=== PATIENT | female | born 1940 | race Caucasian/White ===

== ENCOUNTER → 2018-01-09 12:00 | Outpatient (CLI) | payer MEDICARE, OTHER, SELFPAY ==
--- NOTE | 2018-01-09 | DI.MG.S_ITS ---
BILATERAL DIGITAL SCREENING MAMMOGRAM 3D/2D WITH CAD: 01/09/2018 CLINICAL: Routine screening. Comparison is made to exams dated: 12/19/2016 mammogram, 12/11/2015 mammogram, and 12/08/2014 mammogram - [facility]. The tissue of both breasts is predominantly fatty. Current study was also evaluated with a Computer Aided Detection (CAD) system. No significant masses, calcifications, or other findings are seen in either breast. There has been no significant interval change. IMPRESSION: NEGATIVE There is no mammographic evidence of malignancy. A 1 year screening mammogram is recommended. This exam was interpreted at Station ID: [id number]. NOTE: For mammograms, a report in lay terms will be sent to the patient. Approximately 15% of breast malignancies will not be visualized mammographically. In the management of a palpable breast mass, a negative mammogram must not discourage biopsy of a clinically suspicious lesion. Electronically Signed By: Lona johnson/shelley:01/10/2018 09:30:00 letter sent: Normal Exam ACR BI-RADS Category 1: Negative [id number]
== END ==
PROVIDERS: PCP Physician Assistant; Visit Provider Physician Assistant
DX: Z12.31 Encounter for screening mammogram for malignant neoplasm of breast (principal)
CPT/HCPCS: 77063; 77067

== ENCOUNTER 2019-03-31 08:26 | Day surgery (SDC) | payer MEDICARE, OTHER, SELFPAY ==
--- NOTE | 2019-03-31 | PATH_ITS ---
[facility] Accession Number: [id number] . 01 Material submitted: . PART A: colon - TRANSVERSE COLON POLYP PART B: colon - MASS AT 25CM BIOPSY . 02 Diagnosis: A. Transverse Colon, Polyp, Biopsy: Tubular adenoma. . B. Colon, Mass at 25 cm, Biopsy: Invasive adenocarcinoma, moderately differentiated. Please see comment. MRV 04/01/2019 1630 Local . 02 Comment: B. As part of routine rn quality, Dr. Lyle also reviewed part B of this case and agrees with the diagnosis. Mismatch repair IHC will be performed and the results reported as an addendum. . Dr. Lambert gave preliminary results to Oralia in Dr. Youssef's office on 04/01/2019. . 02 Electronically signed: . Suzie Lambert MD, Pathologist NPI- [id number] . 01 Gross description: . Part A: TRANSVERSE COLON POLYP: Received in formalin is 1 fragment(s) of simeon, soft tissue measuring 0.5 x 0.4 x 0.4 cm submitted entirely in 1 cassette(s) Part B: MASS AT 25CM BIOPSY: Received in formalin are 3 fragment(s) of simeon, soft tissue measuring 0.1 x 0.1 x 0.1 cm to 0.3 x 0.2 x 0.2 cm submitted entirely in 1 cassette(s) /[facility] [place] 03/31/2019 2236 Local . 02 Pathologist provided ICD-10: D12.2, C18.9 . 02 CPT . 499518, 448000 Performed at: [facility] [address] [place] [address] [address], [place], [place] [id number] MD Rui Chi MD Phone: [phone] Performed at: 02 [facility] [address] [place] [id number] MD Suzie Lambert MD Phone: [phone]
[2019-03-31 08:45] VITALS: BMI 29.2
[2019-03-31] MEDS: SODIUM CHLORIDE 0.9% 1,000 ML 84 ML IV (08:51)
[2019-03-31 08:56] VITALS: BP 134/73; PULSE 86; RESP 16; TEMP 36.5; O2SAT 99
--- NOTE | 2019-03-31 10:58 | PM.HP.1 ---
History of Present Illness History of Present Illness Chief complaint: [id number] COLONOSCOPY/EGD W/POSS BX Patient History Family & Social History Social History: household members spouse Tobacco & Substance use: Smoking Status Never smoker alcohol intake current alcohol intake frequency holiday/special occasion Substance Use Type does not use Meds Home Medications and Allergies Home Medications Medication Instructions Recorded Confirmed Type cholecalciferol (vitamin D3) 2,000 unit PO DAILY 03/31/19 03/31/19 History [Vitamin D3] levothyroxine 100 mcg PO DAILY 03/31/19 03/31/19 History Allergies Allergy/AdvReac Type Severity Reaction Status Date / Time No Known Drug Allergies Allergy Verified 03/31/19 08:50 Review of Systems Review of Systems ROS: Yes All systems reviewed with the patient and are negative except as otherwise documented Exam Vital Signs (past 8 hours): - 03/31/19 08:56 Temperature 97.7 F Pulse Rate 86 Respiratory Rate 16 Blood Pressure 134/73 Pulse Oximetry 99 Oxygen Delivery Method Room Air Narrative Exam Narrative: Awake and alert and oriented x3, no acute distress, lungs clear to auscultation bilaterally, heart regular rate and rhythm, no lower extremity edema Assessment & Plan Assessment & Plan narrative: GERD, positive cologuard, EGD and colonoscopy
--- NOTE | 2019-03-31 11:07 | PM.OP.ENDO ---
Operative Date/Time/Diagnoses Date of procedure: 03/31/19 Procedure & Clinicians Study performed: EGD Indications: Moderate conscious sedation was administered by the endoscopy nurse and supervised by the endoscopist. The following parameters were monitored: Oxygen saturation, heart rate, blood pressure, and response to care. Sedation totals: 4 mg midazolam, 100 mcg fentanyl Procedure Notes Procedure in detail: Prior to the procedure, history and physical was performed, and patient medications and allergies were reviewed. Preprocedure nursing history and assessment was reviewed. Patient identification and proposed procedure were verified by the physician and nurse in the procedure room. The physical status of the patient was reassessed after the procedure. After informed consent was obtained including risks, benefits, and alternatives, the scope was passed under direct vision. Throughout the procedure, the patient's blood pressure, pulse, and oxygen saturations were monitored continuously. The upper endoscope was introduced through the mouth and advanced to the 2nd portion of the duodenum. Retroflexion was performed in the stomach. The patient tolerated the procedure well. LA grade C esophagitis was noted in the distal esophagus. There was bleeding on contact by the scope with the mucosa. The gastroesophageal junction was located at 33 cm from the incisors. A 3 cm hiatal hernia was noted. Crural pinch was located at 36 cm. The remainder of the stomach was normal appearing The entire examined duodenum was normal appearing Impression: LA grade C hemorrhagic esophagitis 3 cm hiatal hernia Normal appearing examined duodenum Complications: other (EBL minimal. No complications) Post-procedure Plan for aftercare: Take omeprazole 20 mg twice daily Follow anti-reflux diet and lifestyle Resume home medications Proceed with colonoscopy today Make an appointment in GI clinic in 4-6 weeks Repeat EGD in 8 weeks to confirm healing of esophagitis
[2019-03-31] MEDS: MIDAZOLAM 5 MG/5 ML VIAL IV ×2 (11:15→11:21)
[2019-03-31] MEDS: fentaNYL 250 MCG/5 ML INJ IV (11:18)
--- NOTE | 2019-03-31 11:38 | PM.OP.ENDO ---
Operative Date/Time/Diagnoses Date of procedure: 03/31/19 Procedure & Clinicians Study performed: Colonoscopy with snare polypectomy, biopsy, and injection for tattoo Moderate conscious sedation was administered by the endoscopy nurse and supervised by the endoscopist. The following parameters were monitored: Oxygen saturation, heart rate, blood pressure, and response to care. Sedation total: 3 mg midazolam, plus meds given during EGD Indications: Positive cologuard. Last colonoscopy was done in 2008. Procedure Notes Procedure in detail: Prior to the procedure, history and physical was performed, and patient medications and allergies were reviewed. Preprocedure nursing history and assessment was reviewed. Patient identification and proposed procedure were verified by the physician and nurse in the procedure room. The physical status of the patient was reassessed after the procedure. After informed consent was obtained including risks, benefits, and alternatives, the scope was passed under direct vision. Throughout the procedure, the patient's blood pressure, pulse, and oxygen saturations were monitored continuously. The colonoscope was introduced through the anus and advanced to the cecum as identified by the appendiceal orifice and ileocecal valve. The patient tolerated the procedure well. Bowel prep was deemed adequate to detect polyps greater than 5 mm. Prep was fair prior to lavage. Perianal and digital rectal examinations were unremarkable. Retroflexion in the rectum was unrevealing. A few scattered medium mouth diverticula were noted in the sigmoid colon At 25 cm from the anal verge, a 2 cm mass was noted. This was biopsied with a Jumbo forceps. The area was tattooed with spot ink just proximal to and just distal to the mass. A 5 mm sessile polyp was removed from the transverse colon with a cold snare and was retrieved. Impression: 2 cm mass noted 25 cm from the anal verge. This was biopsied and the area was tattooed. 5 mm transverse colon polyp removed Sigmoid colon diverticulosis Sedation minutes: 39 Complications: other (EBL minimal. No complications) Post-procedure Plan for aftercare: Follow-up pathology results Referred to a general surgeon for resection of the mass seen in the left colon Repeat colonoscopy 1 year after the resection of the left colon mass Resume home medications Resume previous diet Discharge home with escort
[2019-03-31 11:42] VITALS: BP 109/44; PULSE 75; RESP 14; TEMP 36.1; O2SAT 98
[2019-03-31 11:47] VITALS: BP 128/93; PULSE 79; RESP 15; O2SAT 96
[2019-03-31 12:15] VITALS: BP 123/56; PULSE 69; RESP 16; TEMP 36.6; O2SAT 98
--- NOTE | 2019-03-31 14:56 | SUR.PHASEII ---
Late entry: discharge instructions extensively discussed with pt and her . Dr. Youssef also to bedside to go over discharge instruction as well. Belly soft, no nausea. Pt left when ready and left in stable condition.
== END 2019-03-31 12:30 | disposition home or self-care (01) ==
PROVIDERS: PCP Physician Assistant; Referring Provider Physician Assistant; Visit Provider Internal Medicine
PROC: 0DJ08ZZ Inspection of Upper Intestinal Tract, Via Natural or Artificial Opening Endoscopic (ICD-10-PCS; CPT 43235; principal; 2019-03-31 10:00)
PROC: 0DJD8ZZ Inspection of Lower Intestinal Tract, Via Natural or Artificial Opening Endoscopic (ICD-10-PCS; CPT 45378; 2019-03-31 10:00)
DX: C18.9 Malignant neoplasm of colon, unspecified (principal); K20.8 Other esophagitis; K22.8 Other specified diseases of esophagus; K44.9 Diaphragmatic hernia without obstruction or gangrene; D12.3 Benign neoplasm of transverse colon
CPT/HCPCS: 45381; 45385; 45380; 43235; J2250; J3010

== ENCOUNTER → 2019-04-05 16:32 | Outpatient (CLI) | payer MEDICARE, OTHER, SELFPAY ==
[2019-04-05 17:08] LABS: Add Manual Diff / Slide Review NO; Basophils Absolute Auto 100 /uL (0-100); Basophils Percent Auto 1.5 % (0-2); Eosinophils Absolute Auto 100 /uL (0-450); Eosinophils Percent Auto 1.7 % (2-4); Hematocrit 43.7 % (36-46); Hemoglobin 14.7 g/dL (12.0-16.0); Lymphocytes Absolute Auto 2400 /uL (1100-4500); Lymphocytes Percent Auto 27.9 % (25-40); Mean Corpuscular HGB Conc 33.6 % (30-36); Mean Corpuscular Hemoglobin 30.7 PG (26-34); Mean Corpuscular Volume 91.5 fL (80-100); Monocytes Absolute Auto 700 /uL (0-900); Monocytes Percent Auto 8.2 % (3-14); Neutrophils Absolute Auto 5200 /uL (1500-7000); Neutrophils Percent Auto 60.7 % (50-75); Platelet Count 309 X10^3/uL (150-400); Red Blood Cell Count 4.77 X10^6/uL (4.0-5.2); Red Cell Distribution Width 13.2 % (11.6-14.8); White Blood Cell Count 8.6 X10^3/uL (4.5-11.0)
[2019-04-05 17:39] LABS: Alanine Aminotransferase 11 IU/L (<35); Albumin 4.5 g/dL (3.5-5.0); Albumin Globulin Ratio 1.3 (1.0-2.8); Alkaline Phosphatase 88 U/L (38-126); Aspartate Aminotransferase 21 IU/L (14-36); Bilirubin Total 0.4 mg/dL (0.2-1.3); Blood Urea Nitrogen 16 mg/dL (7-17); Calcium 8.8 mg/dL (8.4-10.2); Carbon Dioxide 28 mmol/L (22-32); Chloride 105 mmol/L (98-107); Cholesterol 194 mg/dL (140-199); Estimated Glomerular Filt Rate 53.8 mL/min (>60); Globulin 3.4 g/dL (1.7-4.1); Glucose 93 mg/dL (80-110); HDL Cholesterol 74 mg/dL (40-60); HEMOLYSIS < 15 (0-50); LDL Cholesterol Calculated 96 mg/dL (<100); Potassium 4.3 mmol/L (3.4-5.1); Sodium 142 mmol/L (137-145); Total Protein 7.9 g/dL (6.3-8.2); Triglycerides 118 mg/dL (35-150)
[2019-04-05 18:10] LABS: Vitamin D 25 Hydroxy (D3) 28.5 ng/mL (30.0-100.0)
[2019-04-05 18:43] LABS: Free T4, Direct Thyroxine 1.06 ng/dL (0.78-2.19)
== END ==
PROVIDERS: PCP Physician Assistant; Referring Provider Physician Assistant; Visit Provider Physician Assistant
DX: C18.9 Malignant neoplasm of colon, unspecified (principal); E03.9 Hypothyroidism, unspecified; I10 Essential (primary) hypertension; E55.9 Vitamin D deficiency, unspecified; E78.5 Hyperlipidemia, unspecified
CPT/HCPCS: 36415; 80053; 80061; 82306; 84439; 84443; 85025

== ENCOUNTER → 2019-04-07 09:43 | Outpatient (CLI) | payer MEDICARE, OTHER, SELFPAY ==
--- NOTE | 2019-04-07 | DI.CT.S_ITS ---
PROCEDURE: CT CHEST ABD PEL W CON INDICATIONS: Malignant neoplasm of colon, unspecified TECHNIQUE: After the administration of oral and intravenous contrast, 5 mm thick sections acquired from the lung apices to the symphysis. 5 mm coronal and sagittal reformats were performed, with additional 7 mm coronal MIP reformats through the lungs. For radiation dose reduction, the following was used: automated exposure control, adjustment of mA and/or kV according to patient size. COMPARISON: None. FINDINGS: Image quality: Excellent. CHEST: Lungs and pleura: A 3mm posterior right upper lobe nodule seen on image 88, series 3. A 5mm peripheral right lower nodule seen on image 213, series 3. No acute airspace opacities. No pleural effusions or pneumothorax. Central and peripheral airways appear patent and normal in caliber. Mediastinum: Heart size is normal. No pericardial effusion. No mediastinal or hilar adenopathy by size criteria. Thoracic aorta and central pulmonary arteries are normal in size. Esophagus is normal in caliber. No hiatal hernia. Chest wall: No axillary or supraclavicular adenopathy by size criteria. Thyroid gland is unremarkable. ABDOMEN: Solid organs: Liver is normal in size and enhancement. Gallbladder is surgically absent . Biliary system is non dilated. Pancreas enhances normally. Spleen is normal in size and enhancement. No adrenal nodules. Kidneys demonstrate normal size and enhancement, without hydronephrosis. There is a 2.4 cm right renal cyst. Peritoneum and bowel: No evidence for bowel obstruction. Oral contrast is visualized to the level of the terminal ileum. There is moderate colonic diverticulosis from the junction of the distal descending colon/sigmoid colon through the rectum without evidence of acute inflammatory changes. There is a possible segment of asymmetric bowel wall thickening versus mass noted in the antimesenteric side of the proximal sigmoid colon (axial image 104, series 2, Sagittal image 32, series 5) measuring approximately 2.5 cm x 1.5 cm x 1.7 cm. There is mild circumferential wall thickening of the sigmoid colon which is favored to represent incomplete distention. No free fluid or air. Nodes and vessels: No retroperitoneal or mesenteric adenopathy by size criteria. Aorta and inferior vena cava are normal in size. Miscellaneous: No ventral hernias. PELVIS: Genitourinary: Bladder wall thickness is normal. Miscellaneous: No inguinal hernias or adenopathy. Bones: No suspicious bony lesions. No vertebral body compression fractures. IMPRESSION: 1. Possible segment of asymmetric bowel wall thickening versus mass noted in the antimesenteric side of the proximal sigmoid colon measuring approximately 2.5 cm x 1.5 cm x 1.7 cm. This may correlate with abnormal colonoscopy finding. Recommend correlation with location of the abnormality on colonoscopy with location of this finding. Otherwise, no other suspicious findings visualized in the chest, abdomen, or pelvis. 2. Moderate colonic diverticulosis of the distal colon without acute diverticulitis. 3. Two sub-6mm right sided pulmonary nodules. Recommend follow up chest CT in 12 months to document stability. 4. Status post cholecystectomy. Dictated by: Evgeny Ovalle M.D. on 04/07/2019 at 11:51 Approved by: Evgeny Ovalle M.D. on 04/07/2019 at 12:42
== END ==
PROVIDERS: PCP Physician Assistant; Referring Provider Physician Assistant; Visit Provider Physician Assistant
DX: C18.9 Malignant neoplasm of colon, unspecified (principal); R91.8 Other nonspecific abnormal finding of lung field; K57.30 Diverticulosis of large intestine without perforation or abscess without bleeding; Z90.49 Acquired absence of other specified parts of digestive tract
CPT/HCPCS: 71260; 74177; Q9967

== ENCOUNTER 2019-05-05 07:46 | Inpatient (IN) | payer MEDICARE, OTHER, SELFPAY ==
[2019-04-27 09:00] VITALS: BMI 30.5
[2019-05-05] VITALS (19 sets, daily range): BP systolic 111–188; BP diastolic 49–96; PULSE 67–96; RESP 10–20; TEMP 36.1–36.5; O2SAT 88–97; BMI 31.1
--- NOTE | 2019-05-05 | PATH_ITS ---
[facility] Accession Number: [id number] . 01 Material submitted: . sigmoid colon - SIGMOID COLON . 02 Diagnosis: Sigmoid Colon, Resection: Invasive adenocarcinoma, please see cancer summary below. . SURGICAL PATHOLOGY CANCER CASE SUMMARY, COLON AND RECTUM: PROCEDURE: Sigmoidectomy. TUMOR SITE: Sigmoid colon. TUMOR SIZE: Greatest dimension: 2.0 CM. MACROSCOPIC TUMOR PERFORATION: Not identified. . HISTOLOGIC TYPE: Adenocarcinoma. HISTOLOGIC GRADE: G2: moderately differentiated. TUMOR EXTENSION: Tumor invades submucosa. MARGINS: All margins are uninvolved by invasive carcinoma, high-grade dysplasia/intramucosal carcinoma, and low-grade dysplasia. MARGINS EXAMINED: Proximal, distal, mucosal. . TREATMENT EFFECT: No known presurgical therapy. LYMPHOVASCULAR INVASION: Present, small vessel lymphovascular invasion. PERINUERAL INVASION: Not identified. TYPE OF POLYP IN WHICH INVASIVE CARCINOMA AROSE: Tubular adenoma. TUMOR DEPOSITS: Present. 1 tumor deposit present in pericolorectal adipose tissue. . REGIONAL LYMPH NODES: Number of Lymph Nodes Involved: 4. Number of Lymph Nodes Examined: 13. . PATHOLOGIC STAGE CLASSIFICATION: Primary tumor: pT1. Regional Lymph Nodes: pN2a. . ADDITIONAL PATHOLOGIC FINDINGS: Diverticulosis. ANCILLARY STUDIES: Performed on the prior biopsy ([id number]). No loss of expression of mismatch repair proteins (MLH1, MSH2, MSH6, and PMS2). [facility] 05/11/2019 1602 Local . 02 Comment: The greatest dimension as measured on a slide A6 is 1.7 CM. However, the mass involves 5 sequential tissue blocks, at 0.4 mm estimated thickness for a cumulative dimension of 2.0 CM. . 02 Electronically signed: . Suzie Lambert MD, Pathologist NPI- [id number] . 01 Gross description: . Received in formalin, labeled sigmoid colon, is an unoriented, partially opened segment of colon (length-10.9 cm, resection margin #1 diameter-2.3 cm, resection margin #2 diameter-2.0 cm) with attached mesentery (up to 6.5 cm). The resection margins are received stapled. The mucosa is simeon with a focally tattooed area (7.0 x 3.5 cm) located 1.5 cm from resection margin #1 and 2.4 cm from resection margin #2. Within this area is a simeon firm mass (2.3 x 2.2 x 1.7 cm). The mass is 0.4 cm from the serosa, 3.8 cm from resection margin #1, 6.5 cm from resection margin #2, and 6.5 cm from the radial resection margin. The remaining mucosa has distorted folds. No other nodules, masses or lesions are identified. The resection margins are inked blue. Section code: (A1) resection margin #1, longitudinal customer account representative; (A2) resection margin #2, customer account representative longitudinal sections; (A3) mass with serosa; (A4) radial resection margin, customer account representative; (A5-A8) mass, serially sectioned, entirely submitted; (A9) tattooed area, customer account representative serial section. . A preliminary lymph node search was performed and multiple possible lymph nodes (0.1 cm-0.5 cm) were identified. These are submitted in cassette A10. The adipose tissue was removed and processed overnight in grossing aid resulting in the identification of multiple possible lymph nodes (0.1 cm-0.2 cm). These are submitted in cassette A11. ([id number]) /[facility] 05/09/2019 [facility]0 Local . 02 Microscopic: . An immunhistochemical stain for D2-40 was performed on block A6 in order to evaluate for lymphovascular invasion and is positive around cells of interest consistent with lymphovascular invasion. The control stain showed appropriate reactivity. . * This test was developed and its performance characteristics determined by [employer]. It has not been cleared or approved by the U.S. Food and Drug Administration. The FDA has determined that such clearance or approval is not necessary. This test is used for clinical purposes. It should not be regarded as investigational or for research. . 02 Pathologist provided ICD-10: C18.9 . 02 CPT . 569495, [id number] Performed at: 01 [facility] [address] [place] [address], [place], [place] [id number] MD Rui Chi MD Phone: [phone] Performed at: 02 [facility] [id number] [place], [place] [id number] MD Suzie Lambert MD Phone: [phone]
[2019-05-05] MEDS: PIPERACILLIN-TAZO 3.375 GM/50 ML FROZ.PIGGY IV (10:27)
--- NOTE | 2019-05-05 10:27 | PM.PREOP ---
Pre-operative Note Interval Note History & Physical reviewed/Exam performed by Physician: Yes Changes to H&P: Yes H&P completed within 30 days and has changed as indicated here:: Patient has been back to see her primary care doctor about her elevated TSH. Her levothyroxine dose was increased to 125 micro g per day. She has a plan for follow-up and future check of her TSH when she has recovered from surgery. Otherwise no changes since her prior H&P, which is labeled as General surgery office visit.
--- NOTE | 2019-05-05 11:11 | P.OP_ITS ---
Operative Date/Time/Diagnoses Date of procedure: 05/05/19 Time of procedure: 11:11 Pre-op diagnosis: Complicated diverticulitis. Post-op diagnosis: same Procedure & Clinicians Procedure: Cystoscopy and placement bilateral localizing ureteral stents. Same procedure as scheduled: Yes Indications: Complicated diverticulitis Surgeon: Lexy Nassar Click Yes if Unassisted: Yes Anesthesia Type: General Operative Notes Findings: 1. 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 2. Normal bladder urothelium throughout. 3. Normal position and configuration of bilateral ureteral orifices. Closure Type: not applicable Specimen(s): none sent Applied: catheter (1. 16 Hebrew Cates catheter 2. Bilateral illuminating ureteral stents (black marker on the left).) Estimated Blood Loss (mL): 0 Blood products transfused: none Tourniquet time (min): 0 Procedure in detail: The patient was positioned supine and was administered general anesthesia. She was then repositioned in semi lithotomy in the lower abdomen genitalia and groin were prepped and draped in sterile fashion. The 22 Hebrew panendoscope was then passed and lower urinary tract with the findings as described above. A 0.35 guidewire was then advanced through the scope and into the left ureteral orifice without incident. Over this a black labeled illuminating ureteral stent sheath was advanced over the wire. The wire was then removed. The same steps in maneuvers were performed on the right side positioning a non labeled illuminating ureteral stent sheath. The bladder was left partially filled and the panendoscope was then removed. A 16 Hebrew Cates catheter was then inserted and lower urinary tract the balloon was filled with 10 cc of saline, and the bladder was drained. The illuminating stent sheaths were then secured to the Cates catheter using op site dressings. The fiberoptic wires were then advanced through the lumen of the illuminating ureteral sheaths bilaterally. They were then secured at this location with yet another op site dressing. Dr. Elvin acuña then proceeded with her portion of the operative plan. Complications: none Post-operative Condition: stable Disposition: PACU
[2019-05-05] MEDS: BUPIVACAINE 0.25% W/ EPI 30 ML VIAL 60 ML INJ (15:23)
[2019-05-05] MEDS: BUPIVACAINE LIPOSOME 266 MG/20 ML VIAL INJ (15:26)
[2019-05-05] MEDS: ACETAMINOPHEN IV 1,000 MG/100 ML VIAL 400 MG IV (15:30)
--- NOTE | 2019-05-05 16:07 | PM.OP.1 ---
Operative Date/Time/Diagnoses Date of procedure: 05/05/19 Time of procedure: 16:07 Pre-op diagnosis: Sigmoid colon cancer Post-op diagnosis: same Procedure & Clinicians Procedure: 1) Laparoscopic splenic flexure mobilization 2) Laparoscopic sigmoid colectomy with extracorporeal hand sewn anastomosis 3) Lapaoroscopic lysis of adhesions Same procedure as scheduled: Yes Indications: Sigmoid colon cancer Surgeon: Sandra Ricci Electronics Engineering Technician: Callum Saldivar Anesthesia Type: General Operative Notes Findings: 2cm colon cancer in sigmoid colon Closure Type: primary Specimen(s): other (sigmoid colon) Estimated Blood Loss (mL): 10 Procedure in detail: The patient was brought into the operating room and placed supine on the OR table. Sequential compression devices were placed on both legs and turned on. Appropriate perioperative antibiotics were given prior to the start of surgery. General anesthesia was induced the patient was intubated. Dr. Nassar came in to place ureteral stents. Please see his dictation for that portion of the procedure. Once the ureteral stents were placed the patient was positioned in low lithotomy, modified Aung Lee position. The abdomen and perineum were prepped and draped in sterile fashion. Surgical time-out was conducted. Local anesthetic was injected under the skin just superior to the umbilicus and a 5 mm vertical incision was made at this site. The umbilical stalk was grasped with a Deondre and elevated. A Veress needle was passed through the fascia into proper position. The position was tested with a saline drop test which was appropriate for intra-abdominal Veress needle placement. The abdomen was then insufflated in the usual fashion. Once insufflated to 15 mm Hg the Veress needle was removed and a 5 mm optical trocar was placed under direct vision using a 5 mm 30 degree scope. Once the camera was inside the abdomen I took a look around. There was no injury from port placement. Additional 5mm ports were placed in a similar fashion in the right mid abdomen, and left mid abdomen, and a 12mm port in the right lower quadrant. Moderate dense adhesions were seen in the left and right upper abdomen. The adhesions were gradually taken down with LigaSure. I then turned my attention toward the sigmoid colon, and evaluated the tattooed area of the colon. It was readily visible in the mid sigmoid. We then began dissecting the white line of Toldt laterally from the promontory going superiorly towards the splenic flexure. There were some dense adhesions of the omentum to the transverse and descending colon, which took a prolonged and tedious dissection to remove. Once we finally had mobilization of the splenic flexure we then turned our attention to the distal sigmoid and pelvis. Dissection was continued laterally, with easy avoidance of the ureters because of the ureteral stents which were flashing pink. Once we completed our lateral dissection, our attention was then turned medially. We elevated the colon to the abdominal wall and were able to stretch out the GABBI. I then opened the mesentery at the takeoff of the GABBI, and dissected it circumferentially. I then put two 10 mm clips at the base of the GABBI and 1 distally, and then divided between with LigaSure. We then carried our dissection proximal and distal in order to free the sigmoid colon and its associated mesentery, vessels, and associated lymph nodes. Once the specimen was freed with over 10 cm of distance proximal and distal to the tattoo, I then made a 7 cm periumbilical midline incision, and placed a GelPort hand port. The incision was made in the skin with a 15 blade, after local anesthetic was given. The incision was then carried down to the fascia with electrocautery, and the fascia was opened at the midline. Once incision was made, the GelPort hand port was placed. We then elevated the specimen through the hand port, and were able to bring the entire sigmoid colon through the port. we then divided the sigmoid colon 10 cm proximal and 10 cm distal to the tattoo, giving more than ample margin. The colon was divided with 75 mm blue load TIFFANY stapler. A hand sewn anastomosis was then performed using a double row sutures, within anterior row of running 3 0 PDS, and exterior row of 3 0 silk pop offs in a Lemberted fashion. Once the anastomosis was complete a palpated the anastomosis and found to be patent, and pushed gas and liquid bowel contents back and forth across the anastomosis with no bubbling or leaking from the suture line. At this point the anastomosed bowel was placed back into the abdomen. We insufflated the abdomen and took a final look, to ensure that the bowel was not twisted, and there was no small bowel trapped underneath the colon. The bowel looked well perfused, and under no tension. The specimen was opened on the back table in the entire tumor was found within the specimen, with the greater than 10 cm margin on either side. Specimens sent to pathology. I then closed the right lower quadrant 12 mm port site with a Saurabh Frey transabdominal suture passer using an 0 Vicryl. Injected local anesthetic using 0.25% Marcaine with epi plus Exparel into the site. We then desufflated the abdomen removed the GelPort. I then injected the midline fascial incision with local anesthetic using 0.25% Marcaine with epi as well as Exparel. The fascia was then closed in a running fashion with 0 Prolene suture. The skin was then closed with skin gregoria, and a 4 Monocryl suture was used to close the skin around the umbilicus. The laparoscopic port sites were covered with Band-Aids, and the midline incision was cover with 4x4s and Tegaderm. The ureteral stents were then removed, and the Cates was left in place. Needle sponge and instrument counts were correct x2 at the end of the procedure. The patient tolerated the procedure well. Patient was awakened from anesthesia and extubated. She was transferred to the post-anesthesia care unit in stable condition. Complications: none Post-operative Condition: stable Disposition: PACU
[2019-05-05 18:01] LABS: Add Manual Diff / Slide Review NO; Basophils Absolute Auto 100 /uL (0-100); Basophils Percent Auto 0.6 % (0-2); Eosinophils Absolute Auto 0 /uL (0-450); Hematocrit 40.6 % (36-46); Hemoglobin 13.4 g/dL (12.0-16.0); Lymphocytes Absolute Auto 600 /uL (1100-4500); Lymphocytes Percent Auto 3.2 % (25-40); Mean Corpuscular HGB Conc 32.9 % (30-36); Mean Corpuscular Hemoglobin 29.9 PG (26-34); Monocytes Absolute Auto 600 /uL (0-900); Monocytes Percent Auto 3.1 % (3-14); Neutrophils Absolute Auto 17900 /uL (1500-7000); Neutrophils Percent Auto 93.1 % (50-75); Platelet Count 248 X10^3/uL (150-400); Red Blood Cell Count 4.46 X10^6/uL (4.0-5.2); Red Cell Distribution Width 12.8 % (11.6-14.8); White Blood Cell Count 19.3 X10^3/uL (4.5-11.0)
--- NOTE | 2019-05-05 18:04 | SUR.PHASEI ---
Labs drawn from left antecubital IV site and sent to lab. Patient tolerated well.
[2019-05-05] MEDS: LACTATED RINGERS 1,000 ML 42 ML IV ×3 (18:20→18:24)
[2019-05-05 18:24] LABS: BUN Creatinine Ratio 17.1 (6-22); Blood Urea Nitrogen 14 mg/dL (7-17); Calcium 8.8 mg/dL (8.4-10.2); Carbon Dioxide 22 mmol/L (22-32); Chloride 108 mmol/L (98-107); Estimated Glomerular Filt Rate > 60.0 mL/min (>60); Glucose 166 mg/dL (80-110); Magnesium 1.6 mg/dL (1.6-2.3); Potassium 3.9 mmol/L (3.4-5.1); Sodium 138 mmol/L (137-145)
[2019-05-05 18:25] LABS: HEMOLYSIS 62 (0-50)
[2019-05-05] MEDS: MAGNESIUM SULFATE 2 GM/50 ML PIGGYBACK IV (19:45)
[2019-05-05] MEDS: ACETAMINOPHEN 325 MG TABLET 650 MG PO (19:55)
[2019-05-05] MEDS: PANTOPRAZOLE 20 MG TABLET PO (20:32)
--- NOTE | 2019-05-05 22:20 | PC.ADMIT ---
[email or web address] [facility] Admission Note: The patient,Rebecca Diaz,79 y/o, was given written information regarding hospital policies, unit procedures and contact persons. Pt arrived from PACU at approx 1900. Awake, oriented x4. Denies pain. Lap sites x4 c/d/i. Denies nausea. Oriented to room and call system. Supportive family at bedside. Patient's smoking status: Never smoker. Vital Signs - 8 hr 05/05/19 17:30 05/05/19 17:34 05/05/19 17:44 Temperature 97.4 F L Pulse Rate 96 H 84 82 Respiratory Rate 15 11 L 13 Blood Pressure 188/88 H 175/77 H 160/84 H Pulse Oximetry 90 L 90 L 94 05/05/19 17:49 05/05/19 17:54 05/05/19 18:04 Temperature Pulse Rate 81 81 68 Respiratory Rate 13 11 L 10 L Blood Pressure 162/69 H 168/75 H 158/63 H Pulse Oximetry 94 94 95 05/05/19 18:10 05/05/19 18:14 05/05/19 18:24 Temperature 97.2 F L Pulse Rate 71 80 69 Respiratory Rate 14 14 11 L Blood Pressure 159/63 H 170/75 H 142/49 H Pulse Oximetry 95 95 96 05/05/19 18:40 05/05/19 19:00 05/05/19 19:30 Temperature 97.1 F L Pulse Rate 67 71 73 Respiratory Rate 14 17 Blood Pressure 127/49 L 158/96 H 153/79 H Pulse Oximetry 93 92 93 05/05/19 20:00 05/05/19 20:15 05/05/19 21:00 Temperature 97.3 F L 96.9 F L Pulse Rate 67 69 68 Respiratory Rate 18 16 17 Blood Pressure 111/81 152/74 H Pulse Oximetry 94 95 94
[2019-05-06] MEDS: ACETAMINOPHEN 325 MG TABLET 650 MG PO ×4 (00:20→18:04)
[2019-05-06 00:37] VITALS: BP 153/67; PULSE 71; RESP 18; TEMP 36.6; O2SAT 96
--- NOTE | 2019-05-06 02:40 | PC.NURSE ---
Patient seen and assessed at 0036. Is alert and oriented. Breath sounds diminished but CTA. At shift change patient on RA with sat of 88% so placed on oxygen at 1L/min with sat improving to 96%; is on continuous oximetry monitoring. HRR. BP elevated at 153/97 consistent with earlier readings. Denies nausea. BT hypoactive; denies flatus. Indwelling catheter is patent; urine is clear with pink tinge. Is able to move herself in bed. Up earlier walking in [place] with walker and SBA. Lap dressings to abdomen are intact with small spots of drainage on dressing in LUQ and RLQ. Denies pain. Wearing bilateral calf SCD's. Has abdominal binde but not wanting to wear at this time. Fall risk score is moderate and bed alarm is activated.
[2019-05-06 05:30] VITALS: BP 145/76; PULSE 89; RESP 16; TEMP 36.6; O2SAT 96
[2019-05-06] MEDS: LEVOTHYROXINE 125 MCG TABLET PO (05:56)
[2019-05-06 06:52] LABS: Add Manual Diff / Slide Review NO; Basophils Absolute Auto 0 /uL (0-100); Basophils Percent Auto 0.2 % (0-2); Eosinophils Absolute Auto 0 /uL (0-450); Hematocrit 39.9 % (36-46); Hemoglobin 13.4 g/dL (12.0-16.0); Lymphocytes Absolute Auto 700 /uL (1100-4500); Lymphocytes Percent Auto 5.1 % (25-40); Mean Corpuscular HGB Conc 33.5 % (30-36); Mean Corpuscular Hemoglobin 30.3 PG (26-34); Mean Corpuscular Volume 90.3 fL (80-100); Monocytes Absolute Auto 1100 /uL (0-900); Neutrophils Absolute Auto 12300 /uL (1500-7000); Neutrophils Percent Auto 86.7 % (50-75); Platelet Count 254 X10^3/uL (150-400); Red Blood Cell Count 4.42 X10^6/uL (4.0-5.2); Red Cell Distribution Width 12.8 % (11.6-14.8); White Blood Cell Count 14.2 X10^3/uL (4.5-11.0)
[2019-05-06 06:59] LABS: BUN Creatinine Ratio 16.7 (6-22); Blood Urea Nitrogen 14 mg/dL (7-17); Calcium 10.3 mg/dL (8.4-10.2); Carbon Dioxide 26 mmol/L (22-32); Chloride 104 mmol/L (98-107); Estimated Glomerular Filt Rate > 60.0 mL/min (>60); Glucose 127 mg/dL (80-110); HEMOLYSIS < 15 (0-50); Magnesium 2.2 mg/dL (1.6-2.3); Potassium 4.6 mmol/L (3.4-5.1); Sodium 139 mmol/L (137-145)
[2019-05-06 08:00] VITALS: BP 146/61; PULSE 81; RESP 16; TEMP 37.3; O2SAT 97
[2019-05-06 09:00] VITALS: PULSE 86; O2SAT 98
--- NOTE | 2019-05-06 09:42 | PC.NURSE ---
Addendum entered by Pamela Olivier R.N. 05/06/19 15:43: 1200 vitals not done, pt ambulating, Evening RN aware. Addendum entered by Pamela Olivier R.N. 05/06/19 14:08: At 1405, pt reported passing flatus X1 while sitting on toilet voiding. Addendum entered by Pamela Olivier R.N. 05/06/19 13:40: Late Entry- At 0905, update rec'd from Dr. Ricci. Order for full liquid diet, remove urinary catheter, discontinue blood glucose finger stick monitoring and S/S insulin, Okay for pt to take her own medication of Omeprazole as pantoprazole is not effective for pt. Urinary catheter removed at 0920 without difficulty. Pt voided X1 for approx 100mls of straw colored urine with pink ting and sediment. Pt voided again at 1235 for approx 700 mls of straw colored urine with sediment and pink ting. Pt tolerated full liquid diet for lunch, continues to report mild abd bloating and belching, no flatus yet, denies nausea. Ambulating around unit for 3rd time this shift using walker indep with steady gait. Addendum entered by Pamela Olivier R.N. 05/06/19 12:41: Dr. Ricci called at 1240 for pt status update, At this time, pt has no flatus, Mild abd bloating, belching intermittent, non distressing. Abd discomfort 1/10. Ambulated X2 for several laps each time around unit indep using walker, tolerated well. Original Note: Day Shift- Pt's own medications of Omeprazole and Levothyroxine sent to pharmacy to ID
[2019-05-06] MEDS: HEPARIN 5,000 UNIT/ML VIAL 5000 UNIT SUBCUT (10:29)
[2019-05-06] MEDS: SODIUM CHLORIDE 0.9% FLUSH 10 ML IV (10:33)
[2019-05-06 15:51] VITALS: BP 142/59; PULSE 91; RESP 20; TEMP 36.4; O2SAT 94
--- NOTE | 2019-05-06 16:02 | CM.DANOTE ---
Discharge Planning/Care Management DCP: assessment: Case received, EMR reviewed . Discussed in Team Rounds. Pt is a 79 year old female who admitted yesterday for a scheduled 2 part procedure: first with Dr. Ramos and then with Dr. Ricci. DX: sigmoid colon cancer: procedure: Lap Assisted colectomy with JESSE and spenic flexure mobilization. Bilateral localizing uretal stents. Pt was up and walking in halls with walker and SBA of nusing staff post op. P: check in with pt and follow for d/c issues and options as these are identifidied. Pre-op assessment note: see that 04/26 template info below identifies d/c plan as home after a 3-4 day hospital stay and clinic followup. CM Discharge Assessment Start: 05/06/19 09:26 Freq: Status: Active Protocol: Document 05/06/19 16:01 ITV (Rec: 05/06/19 16:02 ITV [id number]) Discharge Planning Assessment Advance Directives? Yes: POLST Advance Directives on File No History Provided By Medical Record Prior Living Arrangements House Household Members spouse,children Review Status In Process Pre-Anesthesia Assessment Start: 04/27/19 09:00 Freq: Status: Complete Protocol: Document 04/27/19 09:00 CAB (Rec: 04/27/19 09:35 CAB [id number]) Pre-Anesthesia Assessment Patient Information Reviewed Via Phone Assessment Assessment Completed With Patient Primary Care Provider Francisca Lin Seen Specialist in Last 12 Months Yes Specialist Seen General surgeon,Oncologist, Urologist Primary Language Peruvian Drop Board Man Required No Height 162.56 cm Weight 80.739 kg Body Mass Index (BMI) 30.5 Hearing Ability Normal Visual Assist Glasses Dentition Type Dental Implants Barriers to Learning None Other Aids No Hx Anesthesia Reactions No Hx Family Anesthesia Reaction No Hx Malignant Hyperthermia No Hx Blood Transfusions No Hx Blood Transfusion Reaction No Anesthesia Review Requested No alcohol intake current alcohol intake frequency holidays/special occasions only Smoking Status Never smoker Substance Use Type does not use Pain Present Pain Reported History of Falling (Recent or History of No ) Patient is completely paralyzed or No completely immobile Mental Status Oriented to own ability Is patient on oxygen? No Does patient have GALEANO/SOB No Hx Sleep Apnea No CPAP/BIPAP use not prescribed Currently Taking a Beta James No Can You Climb a Flight of Stairs Without Yes SOB Hx Chest Pain No Hx SOB No Hx Syncope or Dizziness No Anti-Coagulant Therapy No Has a Lubricating Specialist No Cardiac Testing No Hx Pacemaker/ICD No Pacemaker Rep Required? No Cardiac Clearance Received Not Applicable Diet Type At Home Regular dysphagia No Gastrointestinal Symptoms Reflux Urinary Catheter Present No Hx Urinary Self Catheterization No Diabetes No Patient No Lactating No Hx Drug Resistant Organism No Presence of External or Internal Medical Yes: dental implants Devices Stevenson exposure No Have you had any close contact with No someone diagnosed with NOVEL CORONAVIRUS ? Have you traveled outside the [facility] in the last 30 days? Marital Status Lives With spouse,children Prior Living Arrangements House Number of Floors (Floors) Two Floors Support System Child/Children,Spouse Patient Discharge Plan Description Return Home Comment Pt advised 3-4 day length of stay per surgeon Feels Safe in Current Environment Yes Been Physically Hurt or Threatened By a No Person in Current Environment Do you have thoughts of harming yourself None or others? Are you currently considering suicide? No Do you have a plan to hurt yourself or No Plan others? Do You Have Any Spiritual Beliefs That No May Affect Your HC Choices? Do You Have Any Cultural Practices That No May Affect Your HC Choices? Who Can We Speak to About Patient's Care Family, friends Identifying Code for Release of Patient Declines to issue Information Health Care Proxy/Next of Kin Jorge Stevenson () Health Care Proxy Emergency Contact Name Jorge Stevenson () Emergency Contact Advance Directives? Yes: POLST Advance Directives on File No Requested Patient Bring Advanced Yes Directives DOS Power of Yarn Mercerizer Operator Helper Yes Power of Yarn Mercerizer Operator Helper Name Graham rahel Power of Yarn Mercerizer Operator Helper PAC Instructions Medications to take/avoid,No ETOH/petroleum product on skin DOS,NPO,Pre-op antibiotic,Pre -surgical wash,Sturdy shoes/ comfortable clothes,Do not bring valuables and remove jewelry
--- NOTE | 2019-05-06 16:43 | PM.DS.1 ---
History of Present Illness History of Present Illness Date Patient Seen: 05/06/19 Time Patient Seen: 16:43 Chief complaint: 73186 Lap-Assisted Colectomy & 27877 Cystoscopy Narrative: This is a 79-year-old woman who had colon cancer found on colonoscopy last month. She came in for sigmoid colectomy to remove that segment of her colon. She tolerated the procedure well, and on postop day 1 was passing gas and tolerating a full liquid diet. Her pain was well controlled with Tylenol only. Discharge Providers Provider Date of admission: 05/05/19 07:46 Discharge Date: 05/06/19 Primary care physician: Francisca Lin PA-C Consults: 05/05/19 19:06 Consult to Dietitian, Adult Routine Comment: Reason For Exam: PT WILL GO HOME ON LOW RESIDUAL Consult to Discharge Planning Routine Comment: Discharge provider: Sandra Ricci MD Summary Hospital Course Discharge Diagnosis: COlon cancer Hospital Course: Passing gas, tolerating full liquids, pain controlled on Tylenol on POD#1. Discharged home on POD#1. Status at Discharge Cognitive/behavioral status at discharge: oriented Functional status at discharge: independent ambulation Overall status at discharge: patient is progressing back to baseline Time Spent with Patient Time spent: Greater than 30 minutes Exam Vital Signs (past 8 hours): - 05/06/19 09:00 05/06/19 15:51 Temperature 97.6 F Pulse Rate 86 91 H Respiratory Rate 20 Blood Pressure 142/59 H Pulse Oximetry 98 94 Oxygen Delivery Method Room Air Oxygen Flow Rate 0 Narrative Exam Narrative: alert, oriented, comfortable non tachypneic; satting well and breathing comfortably on room air normal respirations NSR abdomen soft, appropriate TTP dressings c/d/i no LE edema Objective Labs Result Diagrams: 05/06/19 06:16 05/06/19 06:16 Labs: Laboratory Results - last 24 hr 05/05/19 05/05/19 05/06/19 17:50 17:50 06:16 WBC 19.3 H 14.2 H RBC 4.46 4.42 Hgb 13.4 13.4 Hct 40.6 39.9 MCV 91.0 90.3 MCH 29.9 30.3 MCHC 32.9 33.5 RDW 12.8 12.8 Plt Count 248 254 Neut % (Auto) 93.1 H 86.7 H Lymph % (Auto) 3.2 L 5.1 L [place] % (Auto) 3.1 8.0 Eos % (Auto) 0.0 L 0.0 L Baso % (Auto) 0.6 0.2 Neut # (Auto) 90427 H 02144 H Lymph # (Auto) 600 L 700 L [place] # (Auto) 600 1100 H Eos # (Auto) 0 0 Baso # (Auto) 100 0 Sodium 138 Potassium 3.9 Chloride 108 H Carbon Dioxide 22 BUN 14 Creatinine 0.82 Estimated GFR > 60.0 BUN/Creatinine Ratio 17.1 Glucose 166 H Calcium 8.8 Magnesium 1.6 05/06/19 06:16 WBC RBC Hgb Hct MCV MCH MCHC RDW Plt Count Neut % (Auto) Lymph % (Auto) [place] % (Auto) Eos % (Auto) Baso % (Auto) Neut # (Auto) Lymph # (Auto) [place] # (Auto) Eos # (Auto) Baso # (Auto) Sodium 139 Potassium 4.6 Chloride 104 Carbon Dioxide 26 BUN 14 Creatinine 0.84 Estimated GFR > 60.0 BUN/Creatinine Ratio 16.7 Glucose 127 H Calcium 10.3 H Magnesium 2.2 Discharge Plan Discharge Plan Patient Disposition: Home Discharge comment: You had a sigmoid colectomy for colon cancer. The pathology results will be available sometime next week. Because your pain is well controlled, you have had return of bowel function by passing gas and tolerating a full liquid diet, and because her vital signs are normal, and your labs are normal I am discharging home. You are still recovering from a big surgery, and should be vigilant in keeping a close eye on your symptoms. Things to watch out for are fever over 100.5, nausea, vomiting, bloating, obstipation (which means not passing gas or stool), or increasing or severe pain. You should expect to see some increasing your incisional pain around day 3 because that is when your local anesthetic will wear off. When you remove the dressings, if you see spreading redness, murky fluid draining out of the incision, or anything draining out that has a foul odor, please let me know this in the e-mail, and page the physician on-call to discuss these concerns. You may take Tylenol for your pain. You may take 500-1000 mg per dose. Do not take more than 3000 mg in 24 hours. You may take prescription medication which we will give you called oxycodone. Please keep in mind the oxycodone will cause constipation, and if you take it you should also take a stool softener such as docusate, which is also called Colace. I will send a prescription to your pharmacy for the docusate which you can also get [id number]. Tomorrow you may remove her Band-Aids and the outer dressing on your periumbilical incision. You may take a shower, and pat dry the incisions after you are done. You may then re-cover the incisions with simple dry dressings or Band-Aids. Please continue a full liquid diet until you feel comfortable taking more complex foods. I recommend that you do not advance yourself beyond a low residual diet, which means low in bulk and fiber. I recommend you avoid things like hard meats such as steak, and pork, and that you avoid uncooked vegetables or fruit peels. The nurse or dietitian can give you a printout of a low residual diet pamphlet before you leave. Please take your temperature twice a day, and e-mail me each morning before 10:00 a.m.. In the email I would like to no higher feeling, white your temperature has been, and whether not you have been passing gas or stool, and whether not you had nausea or vomiting. My e-mail address is [email or web address]. If you have any sudden or severe symptoms that require immediate attention, please call the [facility] office and follow the phone instructions to reach the physician on-call. This will be my partner, Dr. Mcguire. You may also come directly into the ER if you have severe or concerning symptoms and cannot reach anyone quickly enough by other means. I would much rather you do this than struggle at home. If there is any discrepancy between the notes in the above paragraphs, and the pre-printed/boiler plate notes given to you at discharge, please follow the notes written here. Please make a follow-up appointment to see me in the office on Friday. This is very important. Discharge orders & Medications Prescriptions: New oxycodone 5 mg tablet 5 mg PO Q4H PRN (Reason: Postoperative pain) Qty: 30 RF: 0 docusate sodium 100 mg capsule 100 mg PO BID Qty: 60 RF: 0 Continued nystatin 100,000 unit/gram powder 1 applictn TOP BID PRN (Reason: Yeast infection) RF: 0 magnesium citrate Solution 296 ml PO .per instructions Qty: 592 RF: 0 erythromycin 500 mg tablet 1,000 mg PO TID Qty: 6 RF: 0 neomycin 500 mg tablet 1 g PO TID Qty: 6 RF: 0 cholecalciferol (vitamin D3) [Vitamin D3] 2,000 unit Tablet 4,000 unit PO DAILY RF: 0 levothyroxine 125 mcg Tablet 125 mcg PO DAILY RF: 0 omeprazole 20 mg Capsule,Delayed Release(Dr/Ec) 20 mg PO BID RF: 0 Follow up/Referrals: Francisca Lin PA-C [Primary Care Provider] - Sandra Ricci MD [Physician] - (Friday 10 AM at [facility] [phone]) Diet/Activity/Treatments Diet: Diet as Tolerated Diet comment: Low residual diet, please give patient low residual diet handout Activity: Please stay active, but avoid heavy lifting more than 10 lb or anything that strains your abdominal muscles. Cold/Heat Therapy: Okay to use an ice pack on your incision for comfort and pain really Skin/Wound/Dressing Care Report to your healthcare provider any signs of infection, such as:: chills, fever, night sweats, increased pain, unusual drainage and unusual redness Visit Report/Discharge Packet Instructions: Low-Fiber/Low-Residue Diet, DI for Cystoscopy, DI for Colectomy, DI for Laparoscopy, DI for Prescription Opioid Use, [facility]: Wound Care Discharge Data Primary Care Provider: Francisca Lin Discharges patient from system. Discharge Date/Time: 05/06/19 18:30 Quality VTE Deep Vein Thrombosis/Pulmonary Embolism Present on Admission: No
--- NOTE | 2019-05-06 19:24 | PC.NURSE ---
Assumed care of pt at 1500. Pt ambulating halls during bedside hand-off. Lap sites x4 C/D/I. Denies pain. Reports passing flatus. MD in for rounding. D/C to home ordered. Pt verbalized understanding of all d/c orders. Medications stored in pharmacy returned to pt. IV removed. pt escorted out to private vehicle by family and EQUIPMENT DRIVER. Pt left in stable condition with all personal belongings.
== END 2019-05-06 18:30 | disposition home or self-care (01) | DRG 331 ==
PROVIDERS: Specialist; Admitting Provider Surgery; PCP Physician Assistant; Referring Provider Physician Assistant; Visit Provider Surgery
PROC: 0DTE0ZZ Resection of Large Intestine, Open Approach (ICD-10-PCS; principal; 2019-05-05 09:45)
PROC: 0T788DZ Dilation of Bilateral Ureters with Intraluminal Device, Via Natural or Artificial Opening Endoscopic (ICD-10-PCS; 2019-05-05 09:45)
DX: C18.7 Malignant neoplasm of sigmoid colon (principal); N30.80 Other cystitis without hematuria; K66.0 Peritoneal adhesions (postprocedural) (postinfection); E03.9 Hypothyroidism, unspecified; K21.9 Gastro-esophageal reflux disease without esophagitis
CPT/HCPCS: 36415; 44204; 44213; 80048; 82962; 83735; 85025; 94762; C9290; J0131; J0330; J1100; J1644; J2250; J2310; J2405; J2543; J2704; J3010

== ENCOUNTER → 2019-05-25 18:18 | Outpatient (ROUT) | payer MEDICARE, OTHER, SELFPAY ==
[2019-05-05 19:06] VITALS: BMI 31.1
[2019-05-25 19:05] LABS: TSH w/ Reflex to FT4 1.47 uIU/mL (0.47-4.68)
== END ==
PROVIDERS: PCP Physician Assistant; Visit Provider Physician Assistant
DX: E03.9 Hypothyroidism, unspecified (principal)
CPT/HCPCS: 84443

== ENCOUNTER → 2019-06-18 13:08 | Outpatient (CLI) | payer MEDICARE, OTHER, SELFPAY ==
[2019-05-05 19:06] VITALS: BMI 31.1
[2019-06-19 03:07] LABS: COVID19 Sendout Not Detected
== END ==
PROVIDERS: PCP Physician Assistant; Visit Provider Family Medicine
DX: Z01.818 Encounter for other preprocedural examination (principal)
CPT/HCPCS: 87635

== ENCOUNTER 2019-06-23 07:53 | Day surgery (SDC) | payer MEDICARE, OTHER, SELFPAY ==
[2019-05-05 19:06] VITALS: BMI 31.1
[2019-06-21 08:40] VITALS: BMI 31.3
--- NOTE | 2019-06-23 | DI.RAD.S_ITS ---
PROCEDURE: XR CHEST 1V INDICATIONS: POSTOP PORT A CATH TECHNIQUE: One view of the chest was acquired. COMPARISON: , CT, CT CHEST ABD PEL W CON, 04/07/2019, 10:36. FINDINGS: Surgical changes and devices: A right-sided chest port is seen. The tip is seen near the caval atrial junction, likely protruding slightly into the right atrium. Cholecystectomy clips are seen. Lungs and pleura: Lungs are clear. No pleural effusions or pneumothorax. Mediastinum: The cardiac contours are within normal limits. The aorta demonstrates calcification and tortuosity. Bones and chest wall: No suspicious bony lesions. Age-appropriate bony degenerative changes are seen. Overlying soft tissues appear unremarkable. IMPRESSION: The tip of the right-sided chest port likely protrudes slightly into the right atrium. Dictated by: Philip Elliott M.D. on 06/23/2019 at 10:36 Approved by: Philip Elliott M.D. on 06/23/2019 at 10:37
[2019-06-23 09:07] VITALS: BP 138/69; PULSE 81; RESP 16; TEMP 36.5; O2SAT 99; BMI 31.3
[2019-06-23] MEDS: ACETAMINOPHEN 325 MG TABLET 975 MG PO (09:27)
[2019-06-23] MEDS: GABAPENTIN 300 MG CAPSULE PO (09:27)
[2019-06-23] MEDS: LACTATED RINGERS 1,000 ML 42 ML IV (09:29)
--- NOTE | 2019-06-23 09:38 | P.HP_ITS ---
History of Present Illness History of Present Illness Date Patient Seen: 06/23/19 Time Patient Seen: 09:38 Chief complaint: [id number] Narrative: This is a 79 yo woman with history of colrectal cancer, GERD, pulmonary nodules, hypothyroid, and obesity (BMI 31) who underwent recent sigmoid colon resection and diagnosis of stage 3a colon cancer. She has been referred for portacath by Dr. Durand in order to start chemotherapy. She has recovered well from her cancer surgery and is feeling well. She denies GI, urinary, respiratory, or cardiac symptoms. She denies any cough, cold, shortness of breath, or fever. She has been recently COVID-19 tested and found to be negative for that. ROS: Thirteen system review is otherwise negative other than as mentioned below and in HPI. PE: GENERAL: Well groomed and cooperative. Appears stated age. Answers questions promptly and appropriately. Vital signs noted. HENT: Normocephalic, atraumatic. Hearing intact. Oral mucosa is pink and moist. EYES: Conjunctiva pink, sclera white, no periorbital swelling. CARDIOVASCULAR: Regular rate. No pedal edema. RESPIRATORY: Non-tachypneic, breathing comfortably on room air. GASTROINTESTINAL: Abdomen soft and non-distended, nontender, well-healed periumbilical and surgical port site incisions GENITALURINARY: No flank tenderness. MUSCULOSKELETAL: Equal tone and mass bilaterally. SKIN: Warm, dry, soft, appropriate color for ethnicity. No other lesions, rashes, or wounds. NEURO: Alert and Oriented X 3. No gross sensory deficits, or cognitive issues. PSYCH: Appropriate affect and mood. Patient History Medical History Colon cancer (Acute) GERD (gastroesophageal reflux disease) (Acute) Hypothyroidism (Acute) Surgical History History of cholecystectomy (Acute ~2012) History of tonsillectomy (Acute ~1964) Hx of colectomy (Acute 05/05/19) Family & Social History Family History Grandmother Stomach cancer Social History: household members spouse,children Tobacco & Substance use: Smoking Status Never smoker alcohol intake current alcohol intake frequency holiday/special occasion Substance Use Type does not use Meds Home Medications and Allergies Home Medications Medication Instructions Recorded Confirmed Type cholecalciferol (vitamin D3) 4,000 unit PO DAILY 03/31/19 06/23/19 History [Vitamin D3] omeprazole 20 mg PO BID 04/08/19 06/23/19 History erythromycin 500 mg tablet 1,000 mg PO TID #6 tab 04/09/19 06/23/19 Rx magnesium citrate 296 ml PO .per instructions #592 ml 04/09/19 06/23/19 Rx neomycin 500 mg tablet 1 g PO TID #6 tab 04/09/19 06/23/19 Rx nystatin 100,000 unit/gram topical 1 applictn TOP BID PRN 04/09/19 06/23/19 History powder levothyroxine 125 mcg PO DAILY 04/27/19 06/23/19 History docusate sodium 100 mg PO BID #60 cap 05/06/19 06/23/19 Rx oxycodone 5 mg PO Q4H PRN #30 tab 05/06/19 06/23/19 Rx fluorouracil See Rx Instructions .ROUTE 06/15/19 06/23/19 Rx .COMPLEX #1 device Allergies Allergy/AdvReac Type Severity Reaction Status Date / Time No Known Drug Allergies Allergy Verified 05/05/19 08:43 Exam Vital Signs (past 8 hours): - 06/23/19 09:07 Temperature 97.7 F Pulse Rate 81 Respiratory Rate 16 Blood Pressure 138/69 Pulse Oximetry 99 Oxygen Delivery Method Room Air Objective Imaging CT scan - abdomen: My impression: Sigmoid colon cancer without clear evidence of metastasis; pulmonary nodules per radiologist Radiologist's impression: [place] [address] CT Scan Report Signed Patient: Rebecca Diaz [facility]#: [id number] : 3Acct:[id number] Age/Sex: 79 / FDate of Service: 04/07/19 Loc: CT Accession Number: [id number] Procedure: CT chest abd pel w con Ordering Provider: Francisca Lin P.A-C PROCEDURE: CT CHEST ABD PEL W CON INDICATIONS: Malignant neoplasm of colon, unspecified TECHNIQUE: After the administration of oral and intravenous contrast, 5 mm thick sections acquired from the lung apices to the symphysis. 5 mm coronal and sagittal reformats were performed, with additional 7 mm coronal MIP reformats through the lungs. For radiation dose reduction, the following was used: automated exposure control, adjustment of mA and/or kV according to patient size. COMPARISON: None. FINDINGS: Image quality: Excellent. CHEST: Lungs and pleura: A 3mm posterior right upper lobe nodule seen on image 88, series 3. A 5mm peripheral right lower nodule seen on image 213, series 3. No acute airspace opacities. No pleural effusions or pneumothorax. Central and peripheral airways appear patent and normal in caliber. Mediastinum: Heart size is normal. No pericardial effusion. No mediastinal or hilar adenopathy by size criteria. Thoracic aorta and central pulmonary arteries are normal in size. Esophagus is normal in caliber. No hiatal hernia. Chest wall: No axillary or supraclavicular adenopathy by size criteria. Thyroid gland is unremarkable. ABDOMEN: Solid organs: Liver is normal in size and enhancement. Gallbladder is surgically absent . Biliary system is non dilated. Pancreas enhances normally. Spleen is normal in size and enhancement. No adrenal nodules. Kidneys demonstrate normal size and enhancement, without hydronephrosis. There is a 2.4 cm right renal cyst. Peritoneum and bowel: No evidence for bowel obstruction. Oral contrast is visualized to the level of the terminal ileum. There is moderate colonic diverticulosis from the junction of the distal descending colon/sigmoid colon through the rectum without evidence of acute inflammatory changes. There is a possible segment of asymmetric bowel wall thickening versus mass noted in the antimesenteric side of the proximal sigmoid colon (axial image 104, series 2, Sagittal image 32, series 5) measuring approximately 2.5 cm x 1.5 cm x 1.7 cm. There is mild circumferential wall thickening of the sigmoid colon which is favored to represent incomplete distention. No free fluid or air. Nodes and vessels: No retroperitoneal or mesenteric adenopathy by size criteria. Aorta and inferior vena cava are normal in size. Miscellaneous: No ventral hernias. PELVIS: Genitourinary: Bladder wall thickness is normal. Miscellaneous: No inguinal hernias or adenopathy. Bones: No suspicious bony lesions. No vertebral body compression fractures. IMPRESSION: 1. Possible segment of asymmetric bowel wall thickening versus mass noted in the antimesenteric side of the proximal sigmoid colon measuring approximately 2.5 cm x 1.5 cm x 1.7 cm. This may correlate with abnormal colonoscopy finding. Recommend correlation with location of the abnormality on colonoscopy with location of this finding. Otherwise, no other suspicious findings visualized in the chest, abdomen, or pelvis. 2. Moderate colonic diverticulosis of the distal colon without acute diverticulitis. 3. Two sub-6mm right sided pulmonary nodules. Recommend follow up chest CT in 12 months to document stability. 4. Status post cholecystectomy. Dictated by: Evgeny Ovalle M.D. on 04/07/2019 at 11:51 Approved by: Evgeny Ovalle M.D. on 04/07/2019 at 12:42 Assessment & Plan Assessment and plan (1) Cancer of left colon: Problem details: 79-year-old woman with the above history, who is here for Port-A-Cath placement. Risks and benefits of Port-A-Cath surgery have been discussed including risk of bleeding, infection, damage to nearby structures, pneumothorax, need for chest tube, Port-A-Cath malfunction, need for replacement of Port-A-Cath, Port-A-Cath infection, need for removal of Port-A-Cath, need for antibiotic treatment, risks of anesthesia. The patient desires to proceed with her Port-A-Cath surgery. Plan: Proceed with Port-A-Cath placement in the OR with ultrasound and fluoro guidance Current visit: No Status: Acute (2) Obesity (BMI 30.0-34.9): Current visit: No Status: Acute (3) Pulmonary nodule: Current visit: No Status: Acute (4) Hypothyroidism: Current visit: No Status: Acute (5) GERD (gastroesophageal reflux disease): Current visit: No Status: Acute Quality VTE Deep Vein Thrombosis/Pulmonary Embolism Present on Admission: No
[2019-06-23] MEDS: CEFAZOLIN 2 GM/100 ML FROZ.PIGGY IV (10:14)
[2019-06-23] MEDS: BUPIVACAINE 0.25% W/ EPI 30 ML VIAL 60 ML INJ (10:56)
[2019-06-23] MEDS: HEPARIN 5,000 UNIT, SODIUM CHLORIDE 0.9% 50 ML IV (10:57)
[2019-06-23 11:22] VITALS: BP 136/71; PULSE 90; RESP 15; TEMP 36.1; O2SAT 95
--- NOTE | 2019-06-23 11:24 | PM.OP.1 ---
Operative Date/Time/Diagnoses Date of procedure: 06/23/19 Time of procedure: 11:24 Pre-op diagnosis: colon cancer stage 3A, in need of portacath for chemo Post-op diagnosis: same Procedure & Clinicians Procedure: right chest IJ portacath placement with US and fluoro guidance Same procedure as scheduled: Yes Indications: Stage 3A colorectal cancer, need of portacath for chemotherapy Surgeon: Sandra Ricci Click Yes if Unassisted: Yes Anesthesia Type: General Operative Notes Findings: Good visualization of right IJ, good position of wire and catheter on fluoro Specimen(s): none sent Prosthetic devices, grafts, tissues, transplants, or devices: BARD low profile portacath Procedure in detail: Procedure in detail: right IJ US guided approach; low profile port; flush and draw back; good position by fluoro of wire, introducer, and catheter The patient was placed supine on the operating room table and underwent general LMA anesthesia. A roll was placed between her shoulders. The neck and chest were prepped and draped in the usual sterile fashion. The patient was positioned in Trendelenburg, and local anesthetic was infiltrated beneath the skin overlying the right IJ. The right neck was examined with ultrasound, and an appropriate position on the internal jugular vein was identified. The right IJ was accessed with a large-bore needle and syringe using simultaneous ultrasound guidance. Dark blood returned indicating venous access, and the guidewire was passed smoothly through the needle. Fluoroscopy was used to identify the position of the guidewire, which was in the SVC. A 2 cm transverse incision was then made in the skin on the right chest wall and a 2 cm x 2 cm pocket was created inferior to the incision. The port was put together and flushed with heparinized saline. It was positioned in the pocket, and the tunneler was used to tunnel the catheter up to the jugular vein. A skin incision was made over top of the guide wire, and the dilator and introducer sheath were passed over the wire using fluoro guidance. The wire and dilator were then removed and the sheath was left in place. The catheter was cut to the appropriate length after evaluating its length using fluoro with the catheter positioned on the patient's chest. Once it was tapered to appropriate length the catheter was passed through the introducer and then the sheath was peeled away. Again using fluoro guidance, the catheter tip appeared to be in good position within the superior vena cava at the cavoatrial junction. The port was fixed to the chest wall using 3 0 silk suture through the two suture holes in the port. The skin was closed with 3 0 Vicryl and 4 0 Monocryl, and the skin incisions were sealed with Dermabond. The Port-A-Cath was accessed through the skin using a Deluna needle and was found to flush well and draw back blood. It was flushed with 10cc of heparinized saline. This concluded the procedure and the patient was awakened from anesthesia and transferred to the postanesthesia care unit in stable condition. Needle sponge and instrument counts were correct x2 at the end of the case. The patient tolerated the procedure well and was transferred to the PACU in stable condition. In the PACU a follow-up chest x-ray was done which showed no pneumothorax and good positioning of the catheter. Complications: none Post-operative Condition: stable Disposition: PACU
[2019-06-23 11:26] VITALS: BP 120/51; PULSE 83; RESP 10; O2SAT 95
[2019-06-23 11:31] VITALS: BP 125/58; PULSE 78; RESP 15; O2SAT 99
[2019-06-23 11:47] VITALS: BP 105/46; PULSE 75; RESP 10; O2SAT 98
== END 2019-06-23 12:07 | disposition home or self-care (01) ==
PROVIDERS: PCP Physician Assistant; Referring Provider Surgery; Visit Provider Surgery
PROC: (CPT 36561; principal; 2019-06-23 09:30)
DX: C18.7 Malignant neoplasm of sigmoid colon (principal); Z45.2 Encounter for adjustment and management of vascular access device; R91.1 Solitary pulmonary nodule; E03.9 Hypothyroidism, unspecified; K21.9 Gastro-esophageal reflux disease without esophagitis; E66.9 Obesity, unspecified; Z68.31 Body mass index [BMI] 31.0-31.9, adult
CPT/HCPCS: 36561; 71045; 76000; C1788; J0690; J1644; J2405; J2704

== ENCOUNTER → 2020-02-08 09:36 | Outpatient (CLI) | payer MEDICARE, OTHER, SELFPAY ==
[2019-05-05 19:06] VITALS: BMI 31.1
--- NOTE | 2020-02-08 | DI.MG.S_ITS ---
BILATERAL DIGITAL SCREENING MAMMOGRAM 3D/2D WITH CAD: 02/08/2020 CLINICAL: Routine screening. Comparison is made to exams dated: 01/09/2018 mammogram, 12/19/2016 mammogram, and 12/11/2015 mammogram - [facility]. There are scattered fibroglandular elements in both breasts. Current study was also evaluated with a Computer Aided Detection (CAD) system. No significant masses, calcifications, or other findings are seen in either breast. There has been no significant interval change. IMPRESSION: NEGATIVE There is no mammographic evidence of malignancy. A 1 year screening mammogram is recommended. This exam was interpreted at Station ID: [id number]. NOTE: For mammograms, a report in lay terms will be sent to the patient. Approximately 15% of breast malignancies will not be visualized mammographically. In the management of a palpable breast mass, a negative mammogram must not discourage biopsy of a clinically suspicious lesion. Electronically Signed By: Rui fong/shelley:02/08/2020 11:04:13 letter sent: Normal Exam ACR BI-RADS Category 1: Negative 3341F
== END ==
PROVIDERS: PCP Physician Assistant; Referring Provider Physician Assistant; Visit Provider Physician Assistant
DX: Z12.31 Encounter for screening mammogram for malignant neoplasm of breast (principal)
CPT/HCPCS: 77063; 77067

== ENCOUNTER → 2020-02-21 09:24 | Outpatient (CLI) | payer MEDICARE, OTHER, SELFPAY ==
[2019-05-05 19:06] VITALS: BMI 31.1
--- NOTE | 2020-02-21 09:26 | DI.CT.S_ITS ---
PROCEDURE: CT CHEST ABD PEL W CON INDICATIONS: colon cancer, now rising billirubin and CEA TECHNIQUE: After the administration of oral and intravenous contrast, 5 mm thick sections acquired from the lung apices to the symphysis. 5 mm coronal and sagittal reformats were performed, with additional 7 mm coronal MIP reformats through the lungs. For radiation dose reduction, the following was used: automated exposure control, adjustment of mA and/or kV according to patient size. COMPARISON: [facility], CT, CT CHEST ABD PEL W CON, 04/07/2019, 10:36. FINDINGS: Image quality: Excellent. CHEST: Lungs and pleura: No acute airspace opacities. Two small likely benign lung radiodensity is are again seen, measuring 2 mm posteriorly at the right upper lobe on series 3, image 106, and also at the posterolateral right lower lobe series 3, image 224. Slight alveolar scarring or infiltration is seen lingular segment left upper lobe. No pleural effusions or pneumothorax. Central and peripheral airways appear patent and normal in caliber. Mediastinum: Heart size is normal. No pericardial effusion. No mediastinal or hilar adenopathy by size criteria. Thoracic aorta and central pulmonary arteries are normal in size. Esophagus is normal in caliber. No hiatal hernia. Port-A-Cath from right-sided approach extends in normal position. Chest wall: No axillary or supraclavicular adenopathy by size criteria. Thyroid gland appears normal where well seen . ABDOMEN: Solid organs: Liver is normal in size and enhancement. Gallbladder has been previously resected . Biliary system is non dilated. Pancreas enhances normally. Spleen is normal in size and enhancement. No adrenal nodules. Kidneys demonstrate normal size and enhancement, without hydronephrosis. Peritoneum and bowel: Bowel loops demonstrate normal wall thickness and caliber. No free fluid or air. Nodes and vessels: No retroperitoneal or mesenteric adenopathy by size criteria. Aorta and inferior vena cava are normal in size. Miscellaneous: No ventral hernias. PELVIS: Genitourinary: Bladder wall thickness is normal. Miscellaneous: No inguinal hernias or adenopathy. Surgical clips left lower quadrant, without identified colonic mass lesion. This represents the area of the sigmoid bowel identified as likely involved by a mucosal mass lesion, on CT scanning 04/07/19. Bones: No suspicious bony lesions. No vertebral body compression fractures. IMPRESSION: Postsurgical changes left lower quadrant adjacent to the sigmoid colon in the area of prior suspected colonic mass lesion. No residual mass or adjacent adenopathy is seen. No distant metastatic disease is found. No biliary distension or hepatic mass lesion is found. Two right-sided small lung radiodensities are stable over time from 04/07/19, follow-up attention to these likely benign small densities is anticipated on follow-up survey CT scanning. Minimal new alveolar stranding lingular segment left upper lobe near the left ventricular apex. Dictated by: Kev Ledesma M.D. on 02/21/2020 at 11:17 Approved by: Kev Ledesma M.D. on 02/21/2020 at 11:27
== END ==
PROVIDERS: PCP Physician Assistant; Referring Provider Internal Medicine Hematology & Oncology; Visit Provider Internal Medicine Hematology & Oncology
DX: C18.6 Malignant neoplasm of descending colon (principal); R79.89 Other specified abnormal findings of blood chemistry; Z95.828 Presence of other vascular implants and grafts
CPT/HCPCS: 71260; 74177; Q9967

== ENCOUNTER → 2020-04-07 10:59 | Outpatient (CLI) | payer MEDICARE, OTHER, SELFPAY ==
[2019-05-05 19:06] VITALS: BMI 31.1
--- NOTE | 2020-04-07 11:05 | DI.CT.S_ITS ---
PROCEDURE: CT CHEST WO CON INDICATIONS: lung nodule followup TECHNIQUE: Noncontrast 2.0-2.5 mm thick sections acquired from the pulmonary apices to the posterior costophrenic angles. 7 mm thick axial MIP and 5 mm coronal and sagittal reformats were then acquired. A low radiation dose technique was utilized. COMPARISON: [facility], CT, CT CHEST ABD PEL W CON, 02/21/2020, 10:19. FINDINGS: Image quality: Diagnostic, given the low radiation dose technique. Lungs and pleura: A 2 mm ground-glass opacity in the right lower lobe series 3, image 184 is unchanged compared to prior CTs and is likely benign. The 2nd nodule described on the prior CT is no longer visualized. No new nodules are identified. Mediastinum: Heart size is normal. No pericardial effusion. No mediastinal adenopathy by size criteria. Thoracic aorta and central pulmonary arteries are normal in size. Esophagus is normal in caliber. No hiatal hernia. The aorta has atherosclerotic calcifications. Bones and chest wall: No suspicious bony lesions. No vertebral body compression fractures. No axillary or supraclavicular adenopathy by size criteria. Thyroid gland is normal . Abdomen: Visualized upper abdomen solid organs and bowel loops appear normal in the absence of contrast. The patient is status post cholecystectomy. IMPRESSION: 1. No acute abnormality of the chest. 2. A 2 mm nodule seen on the prior CT in the right lower lobe is unchanged. A 2nd nodule described on the prior CT is no longer visualized. No further follow-up specifically for these nodules is required. Dictated by: Christoph Samuel M.D. on 04/07/2020 at 11:26 Approved by: Christoph Samuel M.D. on 04/07/2020 at 11:43
== END ==
PROVIDERS: PCP Physician Assistant; Referring Provider Internal Medicine Hematology & Oncology; Visit Provider Internal Medicine Hematology & Oncology
DX: C18.6 Malignant neoplasm of descending colon (principal); R91.1 Solitary pulmonary nodule
CPT/HCPCS: 71250

== ENCOUNTER → 2021-04-17 09:30 | Outpatient (CLI) | payer MEDICARE, OTHER, SELFPAY ==
[2019-05-05 19:06] VITALS: BMI 31.1
--- NOTE | 2021-04-17 | DI.MG.S_ITS ---
BILATERAL DIGITAL SCREENING MAMMOGRAM 3D/2D WITH CAD: 04/17/2021 CLINICAL: Routine screening. Family history of breast cancer. Comparison is made to exams dated: 02/08/2020 mammogram, 01/09/2018 mammogram, and 12/19/2016 mammogram - [facility]. There are scattered fibroglandular elements in both breasts. Current study was also evaluated with a Computer Aided Detection (CAD) system. No significant masses, calcifications, or other findings are seen in either breast. There has been no significant interval change. IMPRESSION: NEGATIVE There is no mammographic evidence of malignancy. A 1 year screening mammogram is recommended. This exam was interpreted at Station ID: [id number]. NOTE: For mammograms, a report in lay terms will be sent to the patient. Approximately 15% of breast malignancies will not be visualized mammographically. In the management of a palpable breast mass, a negative mammogram must not discourage biopsy of a clinically suspicious lesion. Electronically Signed By: Evgeny stiles/shelley:04/17/2021 10:02:58 letter sent: Normal Exam ACR BI-RADS Category 1: Negative 3341F
== END ==
PROVIDERS: PCP Physician Assistant; Referring Provider Internal Medicine Hematology & Oncology; Visit Provider Internal Medicine Hematology & Oncology
DX: Z12.31 Encounter for screening mammogram for malignant neoplasm of breast (principal); Z80.3 Family history of malignant neoplasm of breast
CPT/HCPCS: 77063; 77067

== ENCOUNTER → 2021-05-28 09:37 | Outpatient (CLI) | payer MEDICARE, OTHER, SELFPAY ==
[2019-05-05 19:06] VITALS: BMI 31.1
--- NOTE | 2021-05-28 09:39 | DI.CT.S_ITS ---
PROCEDURE: CT CHEST ABD PEL W CON INDICATIONS: Colon cancer. TECHNIQUE: After the administration of oral and intravenous contrast, axial sections acquired from the supraclavicular neck to the pubic symphysis. Coronal and sagittal reformats were performed. For radiation dose reduction, the following was used: automated exposure control, adjustment of mA and/or kV according to patient size. COMPARISON:[facility], CT, CT CHEST WO CON, 04/07/2020, 10:59. [facility], CT, CT CHEST ABD PEL W CON, 04/07/2019, 10:36. [facility], CT, CT CHEST ABD PEL W CON, 02/21/2020, 10:19. FINDINGS: Image quality: Excellent. CHEST: Lower Neck: No enlarged lymph nodes. Thyroid: Within normal limits. Axillae: No enlarged lymph nodes. Chest Wall: Unremarkable. There is a Port-A-Cath in the right anterior chest with the tip in right atrium. Lungs and Airways: There is a 3 mm subpleural ground-glass nodule in the right lower lobe (series 3, image 207), unchanged in size. A 2 mm nodule in the posterior segment of the right upper lobe (series 3, image 88) is also stable. Subpleural scars and atelectasis in right middle lobe. Pleura: No pneumothorax or pleural effusions. Heart: Heart size is normal. No pericardial effusion. Thoracic Vessels: The aorta and pulmonary arteries demonstrate normal size. Mediastinum and Nataly: No enlarged lymph nodes. Esophagus: No wall thickening. Small hiatal hernia. ABDOMEN: Liver: Unremarkable. Gallbladder: Surgically resected. Biliary ducts: Unremarkable. Pancreas: Unremarkable. Spleen: Unremarkable. Adrenal Glands: Unremarkable. Kidneys and Ureters: Normal size and symmetrical enhancement. There is a 2 x 3 cm simple appearing cyst in the superior pole of the right kidney. Stomach and Bowel: Stomach, small bowel loops, and colon are normal in caliber. Postsurgical changes in the descending and proximal sigmoid colon. Mild diverticulosis. No diverticulitis. Moderate amount of stool in colon. Peritoneum: No abnormal intraperitoneal fluid. No free air. Ventral Wall: No hernia. Abdominal Nodes: No retroperitoneal or mesenteric adenopathy by size criteria. Vessels: Aorta and inferior vena cava are normal in size. PELVIS: Pelvic Organs: Uterus and ovaries are grossly normal. Bladder: Unremarkable. Pelvic Nodes: No enlarged lymph nodes. Miscellaneous: No inguinal hernias are seen. Bones: Unremarkable. IMPRESSION: 1. Stable small right lung nodules. 2. No findings to suggest metastatic disease. Dictated by: Moisés Pires M.D. on 05/28/2021 at 12:39 Approved by: Moisés Pires M.D. on 05/28/2021 at 13:03
== END ==
PROVIDERS: PCP Physician Assistant; Referring Provider Internal Medicine Hematology & Oncology; Visit Provider Internal Medicine Hematology & Oncology
DX: C18.6 Malignant neoplasm of descending colon (principal); R91.8 Other nonspecific abnormal finding of lung field
CPT/HCPCS: 71260; 74177

== ENCOUNTER → 2021-06-27 08:30 | Outpatient (CLI) | payer MEDICARE, OTHER, SELFPAY ==
[2019-05-05 19:06] VITALS: BMI 31.1
[2021-06-27 10:08] LABS: COVID19 -Nasal RAPID Negative (Negative)
== END ==
PROVIDERS: PCP Physician Assistant; Visit Provider Surgery
DX: Z01.812 Encounter for preprocedural laboratory examination (principal); Z20.822 Contact with and (suspected) exposure to COVID-19
CPT/HCPCS: 87635; C9803

== ENCOUNTER 2021-06-28 06:20 | Day surgery (SDC) | payer MEDICARE, OTHER, SELFPAY ==
[2019-05-05 19:06] VITALS: BMI 31.1
[2021-06-28] MEDS: LACTATED RINGERS 1,000 ML 84 ML IV (07:06)
[2021-06-28 07:17] VITALS: BP 158/74; PULSE 84; RESP 16; TEMP 36.8; O2SAT 98; BMI 30.9
--- NOTE | 2021-06-28 07:48 | PM.HP.1 ---
History of Present Illness History of Present Illness Date Patient Seen: 06/28/21 Time Patient Seen: 07:48 Chief complaint: DX COLONOSCOPY Narrative: Rebecca is a 81-year-old woman who was diagnosed with colon cancer in 2019 and had a sigmoid colectomy by Dr. Ricci. She has not had a follow-up colonoscopy since then. Patient History Medical History (Updated 06/28/21 @ 07:49 by Bradley Danielson MD) Colon cancer GERD (gastroesophageal reflux disease) Hypothyroidism Surgical History (Updated 06/29/19 @ 09:50 by Vanessa Durand MD) History of cholecystectomy (~2012) History of tonsillectomy (~1964) Hx of colectomy (05/05/19) Family & Social History Family History Grandmother Stomach cancer Social History: household members spouse,children Tobacco & Substance use: Smoking Status Never smoker alcohol intake current alcohol intake frequency holiday/special occasion Substance Use Type does not use Meds Home Medications and Allergies Home Medications Medication Instructions Recorded Confirmed Type cholecalciferol (vitamin D3) 50 4,000 unit PO DAILY 03/31/19 06/28/21 History mcg (2,000 unit) tablet (Vitamin D3) omeprazole 20 mg capsule,delayed 20 mg PO DAILY 04/08/19 06/28/21 History release cyanocobalamin (vitamin B-12) See Rx Instructions .ROUTE .COMPLEX 05/10/21 06/28/21 History 1,000 mcg tablet (Vitamin B-12) levothyroxine 112 mcg tablet 112 mcg PO DAILY 05/10/21 06/28/21 History Allergies Allergy/AdvReac Type Severity Reaction Status Date / Time No Known Drug Allergies Allergy Verified 05/05/19 08:43 Exam Vital Signs (past 8 hours): - 06/28/21 07:17 Temperature 98.2 F Pulse Rate 84 Respiratory Rate 16 Blood Pressure 158/74 H Pulse Oximetry 98 Oxygen Delivery Method Room Air Narrative Exam Narrative: No acute distress Abdomen soft nontender Assessment & Plan Assessment and plan (1) History of colon cancer: Status: Acute Plan 81-year-old woman with a history of colon cancer in need of a surveillance colonoscopy. We reviewed the risks and benefits of colonoscopy with sedation and she would like to proceed. COVID-19 COVID-19 status: Negative Result date/Date tested (Pos, Neg/Pending): 06/27/21 Time Spent With Patient Critical Care time: I spent a total of [] minutes of critical care time on this patient's care today; this time is exclusive of procedural time.
[2021-06-28] MEDS: MIDAZOLAM 5 MG/5 ML VIAL IV (08:05)
--- NOTE | 2021-06-28 08:19 | PM.OP.COLON ---
Operative Date/Time/Diagnoses Date of procedure: 06/28/21 Time of procedure: 08:19 Pre-op diagnosis: History of colon cancer Post-op diagnosis: same Procedure & Clinicians Study performed: Colonoscopy Surgeon: Bradley Danielson Procedure Notes Procedure in detail: Procedure: The patient was brought to the endoscopy suite, placed in left lateral decubitus position. The patient was connected to monitoring devices. A time-out was performed. Sedation was administered. Once the patient was adequately sedated, a digital rectal exam was performed and was normal. The scope was then inserted and advanced to the cecum where the appendiceal orifice was identified and photographed. The scope was then slowly withdrawn over greater than 6 minutes. Mucosa was thoroughly inspected. No polyps were noted. There were diverticula in the left colon and the presumed anastomosis was in the rectosigmoid junction area. The scope was retroflexed in the rectum. No abnormalities were noted. The scope was straightened and removed. The patient was awakened and brought to recovery. Versed: 4 mg Fentanyl: 100 mcg EBL: 0 Findings: Normal colon with an anastomosis in the rectosigmoid region. Scope withdrawal time: 9 Sedation minutes: 22 Post-procedure Plan for aftercare: No further colonoscopies are needed
[2021-06-28] MEDS: fentaNYL 250 MCG/5 ML INJ 100 MCG IV (08:20)
[2021-06-28 08:21] VITALS: BP 131/68; PULSE 73; RESP 19; TEMP 36.6; O2SAT 97
[2021-06-28 08:26] VITALS: BP 134/67; PULSE 74; RESP 19; O2SAT 96
[2021-06-28 08:31] VITALS: BP 138/64; PULSE 76; RESP 15; O2SAT 98
[2021-06-28 08:36] VITALS: BP 137/75; PULSE 75; RESP 15; O2SAT 96
--- NOTE | 2021-06-28 08:37 | SUR.PHASEI ---
Discharge instructions reviewed with pt and she verbalized understanding.
== END 2021-06-28 08:50 | disposition home or self-care (01) ==
PROVIDERS: PCP Physician Assistant; Referring Provider Surgery; Visit Provider Surgery
PROC: 0DJD8ZZ Inspection of Lower Intestinal Tract, Via Natural or Artificial Opening Endoscopic (ICD-10-PCS; CPT 45378; principal; 2021-06-28 07:45)
DX: Z12.11 Encounter for screening for malignant neoplasm of colon (principal); Z85.038 Personal history of other malignant neoplasm of large intestine; Z86.010 Personal history of colon polyps; Z90.49 Acquired absence of other specified parts of digestive tract; K21.9 Gastro-esophageal reflux disease without esophagitis; E03.9 Hypothyroidism, unspecified; K57.30 Diverticulosis of large intestine without perforation or abscess without bleeding
CPT/HCPCS: G0105; 99152; J2250; J3010

== ENCOUNTER → 2022-04-18 10:17 | Outpatient (CLI) | payer MEDICARE, OTHER, SELFPAY ==
[2019-05-05 19:06] VITALS: BMI 31.1
--- NOTE | 2022-04-18 | DI.MG.S_ITS ---
BILATERAL DIGITAL SCREENING MAMMOGRAM 3D/2D WITH CAD: 04/18/2022 CLINICAL: Routine screening. Family history of breast cancer. Comparison is made to exams dated: 04/17/2021 mammogram, 02/08/2020 mammogram, and 01/09/2018 mammogram - [facility]. There are scattered areas of fibroglandular density in both breasts (category b / 25%-50% glandular tissue). Current study was also evaluated with a Computer Aided Detection (CAD) system. No significant masses, calcifications, or other findings are seen in either breast. There has been no significant interval change. IMPRESSION: NEGATIVE There is no mammographic evidence of malignancy. A 1 year screening mammogram is recommended. Based on the Tyrer Cuzick model (a risk assessment model) the patient's lifetime risk is 1.7% and her 10 year risk is 0.0%. According to the ACR, ACS, and NCCN guidelines, an annual breast MRI exam along with mammogram is recommended if the patient's lifetime risk is 20% or greater. This exam was interpreted at Station ID: [id number]. NOTE: For mammograms, a report in lay terms will be sent to the patient. Approximately 15% of breast malignancies will not be visualized mammographically. In the management of a palpable breast mass, a negative mammogram must not discourage biopsy of a clinically suspicious lesion. Electronically Signed By: Jerry Espitia M.D., jr/shelley:04/18/2022 10:57:16 letter sent: Normal Exam ACR BI-RADS Category 1: Negative [id number]
== END ==
PROVIDERS: PCP Registered Nurse; Referring Provider Registered Nurse; Visit Provider Physician Assistant
DX: Z12.31 Encounter for screening mammogram for malignant neoplasm of breast (principal); Z80.3 Family history of malignant neoplasm of breast
CPT/HCPCS: 77063; 77067

== ENCOUNTER → 2022-06-17 08:15 | Outpatient (CLI) | payer MEDICARE, OTHER, SELFPAY ==
[2019-05-05 19:06] VITALS: BMI 31.1
--- NOTE | 2022-06-17 08:17 | DI.CT.S_ITS ---
PROCEDURE: CT CHEST ABD PEL W CON INDICATIONS: colon cancer TECHNIQUE: After the administration of oral and intravenous contrast, axial sections acquired from the supraclavicular neck to the pubic symphysis. Coronal and sagittal reformats were performed. For radiation dose reduction, the following was used: automated exposure control, adjustment of mA and/or kV according to patient size. COMPARISON: [facility], CT, CT CHEST ABD PEL W CON, 05/28/2021, 10:53. FINDINGS: Image quality: Excellent. CHEST: Lower Neck: No enlarged lymph nodes. Thyroid: Diminutive. Axillae: No enlarged lymph nodes. Chest Wall: Unremarkable. Lungs and Airways: No consolidation or suspicious nodules. Stable 4-5 mm solid nodule, right lower lobe (7/103). Pleura: No pneumothorax or pleural effusions. Heart: Heart size is normal. No pericardial effusion. Thoracic Vessels: The aorta and pulmonary arteries demonstrate normal size. Mediastinum and Nataly: No enlarged lymph nodes. Esophagus: No wall thickening. No hiatal hernia. ABDOMEN: Liver: Unremarkable. Gallbladder: Surgically absent. Biliary ducts: Unremarkable. Pancreas: Unremarkable. Spleen: Unremarkable. Adrenal Glands: Unremarkable. Kidneys and Ureters: No complex renal cystic lesions which require follow-up. Stomach and Bowel: Stomach, small bowel loops, and colon are unremarkable. Colonic diverticulosis without evidence of diverticulitis. Peritoneum: No abnormal intraperitoneal fluid. No free air. Ventral Wall: No hernia. Abdominal Nodes: No retroperitoneal or mesenteric adenopathy by size criteria. Vessels: Aorta and inferior vena cava are normal in size. PELVIS: Pelvic Organs: Unremarkable. Bladder: Unremarkable. Pelvic Nodes: No enlarged lymph nodes. Miscellaneous: No inguinal hernias are seen. Bones: Unremarkable. IMPRESSION: 1. Stable pulmonary nodules. 2. No evidence of metastatic disease. 3. Diminutive thyroid, which may indicate underlying thyroiditis. Correlate with thyroid panel. Dictated by: Pito Marc M.D. on 06/17/2022 at 11:51 Approved by: Pito Marc M.D. on 06/17/2022 at 11:55
== END ==
PROVIDERS: PCP Registered Nurse; Referring Provider Internal Medicine Hematology & Oncology; Visit Provider Internal Medicine Hematology & Oncology
DX: C18.6 Malignant neoplasm of descending colon (principal); R91.8 Other nonspecific abnormal finding of lung field
CPT/HCPCS: 71260; 74177; Q9967

== ENCOUNTER → 2023-01-02 08:22 | Outpatient (CLI) | payer MEDICARE, OTHER, SELFPAY ==
[2019-05-05 19:06] VITALS: BMI 31.1
--- NOTE | 2023-01-02 | DI.CT.S_ITS ---
PROCEDURE: CT CHEST ABD PEL W CON INDICATIONS: Malignant neoplasm of descending colon TECHNIQUE: After the administration of oral and intravenous contrast, axial sections acquired from the supraclavicular neck to the pubic symphysis. Coronal and sagittal reformats were performed. For radiation dose reduction, the following was used: automated exposure control, adjustment of mA and/or kV according to patient size. COMPARISON: [facility], CT, CT CHEST ABD PEL W CON, 04/07/2019, 10:36. [facility], CT, CT CHEST ABD PEL W CON, 06/17/2022, 9:58. FINDINGS: Image quality: Excellent. CHEST: Lower Neck: No enlarged lymph nodes. Thyroid: Atrophic or absent. Axillae: No enlarged lymph nodes. Chest Wall: Right chest wall port tip terminates in the high right atrium. Lungs and Airways: No consolidation or suspicious nodules. Stable 4 mm solid nodule, right lower lobe (series 5, image 214). Pleura: No pneumothorax or pleural effusions. Heart: Heart size is normal. No pericardial effusion. Thoracic Vessels: The aorta and pulmonary arteries demonstrate normal size. Mediastinum and Nataly: No enlarged lymph nodes. Esophagus: No wall thickening. No hiatal hernia. ABDOMEN: Liver: No solid mass. Gallbladder and biliary tree: Cholecystectomy. No biliary dilation. Spleen: Normal size. Pancreas: No ductal dilation. Adrenal glands: No adrenal nodules. Kidneys: No hydronephrosis. No solid mass. No complex renal cysts which requires follow-up. Stomach and Bowel: Stomach, small bowel loops, and colon are unremarkable. Peritoneum: No abnormal intraperitoneal fluid. No free air. Ventral Wall: No hernia. Abdominal Nodes: No retroperitoneal or mesenteric adenopathy by size criteria. Vessels: Aorta and inferior vena cava are normal in size. PELVIS: Pelvic Organs: Unremarkable. Bladder: Unremarkable. Pelvic Nodes: No enlarged lymph nodes. Miscellaneous: No inguinal hernias are seen. Bones: Unremarkable. IMPRESSION: 1. No evidence of metastatic disease. 2. Stable appearance of the thyroid. Dictated by: Pito Marc M.D. on 01/02/2023 at 10:40 Approved by: Pito Marc M.D. on 01/02/2023 at 10:50
== END ==
PROVIDERS: PCP Registered Nurse; Referring Provider Internal Medicine Hematology & Oncology; Visit Provider Internal Medicine Hematology & Oncology
DX: C18.6 Malignant neoplasm of descending colon (principal); R91.1 Solitary pulmonary nodule
CPT/HCPCS: 71260; 74177; Q9967

== ENCOUNTER → 2023-04-22 09:25 | Outpatient (CLI) | payer MEDICARE, OTHER, SELFPAY ==
[2019-05-05 19:06] VITALS: BMI 31.1
--- NOTE | 2023-04-22 09:28 | DI.MG.S_ITS ---
BILATERAL DIGITAL SCREENING MAMMOGRAM 3D/2D WITH CAD: 04/22/2023 CLINICAL: Routine screening. Family history of breast cancer. Comparison is made to exams dated: 04/18/2022 mammogram, 04/17/2021 mammogram, and 02/08/2020 mammogram - [facility]. Both breasts are almost entirely fatty (category a/<25% glandular tissue). Current study was also evaluated with a Computer Aided Detection (CAD) system. No significant masses, calcifications, or other findings are seen in either breast. There has been no significant interval change. IMPRESSION: NEGATIVE There is no mammographic evidence of malignancy. A 1 year screening mammogram is recommended. Based on the Tyrer Cuzick model (a risk assessment model) the patient's lifetime risk is 0.5% and her 10 year risk is 0.0%. According to the ACR, ACS, and NCCN guidelines, an annual breast MRI exam along with mammogram is recommended if the patient's lifetime risk is 20% or greater. This exam was interpreted at Station ID: [id number]. NOTE: For mammograms, a report in lay terms will be sent to the patient. Approximately 15% of breast malignancies will not be visualized mammographically. In the management of a palpable breast mass, a negative mammogram must not discourage biopsy of a clinically suspicious lesion. Electronically Signed By: Vlad stark/shelley:04/22/2023 12:11:19 letter sent: Normal Exam ACR BI-RADS Category 1: Negative [id number]
--- NOTE | 2023-04-22 09:28 | DI.RAD.S_ITS ---
Bone Density Report Name: DERICK GAUTHIER Age: 83 Sex: Female Ethnicity: White Date of : 1940 Indication: postmenopausal; screening for osteoporosis; Referring Provider: KATIE SEVILLA Study: Bone densitometry was performed. Exam Date: April 22, 2023 Accession number: [id number] Bone Density: Region BMD T-score Z-score Classification AP Spine(L1, L2, L3) 1.006 -0.1 2.5 Normal Femoral Neck (Left) 0.590 -2.3 0.0 Osteopenia Total Hip (Left) 0.706 -1.9 0.2 Osteopenia Femoral Neck (Right) 0.600 -2.2 0.1 Osteopenia Total Hip (Right) 0.669 -2.2 -0.1 Osteopenia Total Hip Mean 0.687 -2.1 0.1 Osteopenia World Health Organization criteria for BMD impression classify patients as: Normal (T-score at or above -1.0), Osteopenia (T-score between -1.0 and -2.5), or Osteoporosis (T-score at or below -2.5). 10-year Fracture Risk(1): Major Osteoporotic Fracture 16% Hip Fracture 5.2% Reported Risk Factors: [place] (), Neck BMD=0.590, BMI=30.8 (1) FRAX(R) Version 3.08. Fracture probability calculated for an untreated patient. Fracture probability may be lower if the patient has received treatment. Previous Exams: -- Region Exam Age BMD T-score BMD Change BMD Change Date g/cm2 vs Baseline vs Previous -- AP Spine (L1-L3) 04/22/2023 83 1.006 -0.1 -0.169 (-14.4%)# -0.169 (-14.4%)# 01/06/2012 71 1.175 1.4 Total Hip(Left) 04/22/2023 83 0.706 -1.9 -0.185 (-20.7%)# -0.185 (-20.7%)# 01/06/2012 71 0.891 -0.4 Total Hip(Right) 04/22/2023 83 0.669 -2.2 -0.179 (-21.1%)# -0.179 (-21.1%)# 01/06/2012 71 0.847 -0.8 -- *Denotes significance at 95% confidence level, LSC for AP Spine = 0.022 g/cm2, LSC for Total Hip = 0.027 g/cm2 # Denotes dissimilar scan types or analysis methods Impression: The patient has low bone mass, based on the Left Femoral Neck T-score. The patient has an estimated ten-year risk of hip fracture of 5.2% and an estimated ten-year risk of major fracture of 16%, based on the WHO FRAX algorithm. No significant bone loss was observed. Discussion: BONE DENSITY IS LOW AT ONE OR MORE SKELETAL SITES. THE PATIENT'S BMD AND CLINICAL RISK FACTORS CONTRIBUTE TO THIS PATIENT'S INCREASED RISK OF FRACTURE. This patient's lowest T-score is low at one or more skeletal sites. It meets the World Health Organization's (WHO) criteria for low bone mass (T-score between -1.0 and -2.5). The patient's 10-year risk of hip fracture as calculated by FRAX exceeds the threshold where pharmacological therapy is recommended by the National Osteoporosis Foundation (NOF). However, all treatment decisions require clinical judgment and consideration of individual patient factors, including patient preferences, comorbidities, previous drug use, risk factors not captured in the FRAX model (e.g., frailty, falls, vitamin D deficiency, increased bone turnover, interval significant decline in bone density) and possible under or overestimation of fracture risk by FRAX. The patient should follow a healthful lifestyle (good nutrition with adequate calcium and vitamin D, and appropriate weight-bearing exercise). Follow-Up: Consider a repeat BMD and Vertebral Fracture Assessment (VFA) exam in 2 years or sooner if medically necessary, to reassess this patient's status. Reported by: MONROE VEGA MD on 04/22/2023 9:52:00 AM.
== END ==
PROVIDERS: PCP Registered Nurse; Referring Provider Registered Nurse; Visit Provider Registered Nurse
DX: Z12.31 Encounter for screening mammogram for malignant neoplasm of breast (principal); Z13.820 Encounter for screening for osteoporosis; M85.852 Other specified disorders of bone density and structure, left thigh; Z80.3 Family history of malignant neoplasm of breast; Z78.0 Asymptomatic menopausal state
CPT/HCPCS: 77063; 77067; 77080

== ENCOUNTER → 2023-12-23 10:28 | Outpatient (CLI) | payer MEDICARE, OTHER, SELFPAY ==
[2019-05-05 19:06] VITALS: BMI 31.1
--- NOTE | 2023-12-23 10:29 | DI.CT.S_ITS ---
PROCEDURE: CT CHEST ABD PEL W CON INDICATIONS: COLON CANCER TECHNIQUE: After the administration of intravenous contrast, 5 mm thick sections acquired from the lung apices to the symphysis. 5 mm coronal and sagittal reformats were performed, with additional 7 mm MIP reformats through the lungs. For radiation dose reduction, the following was used: automated exposure control, adjustment of mA and/or kV according to patient size. COMPARISON: [facility], CT, CT CHEST ABD PEL W CON, 04/07/2019, 10:36. [facility], CT, CT CHEST ABD PEL W CON, 01/02/2023, 9:36. FINDINGS: Image quality: Excellent. CHEST: Lower Neck: No enlarged lymph nodes. Thyroid: Atrophic appearing. No thyroid nodules which require sonographic follow up, per consensus guidelines. Axillae: No enlarged lymph nodes. Chest Wall: Right-sided port with the catheter tip at the cavoatrial junction. Lungs and Pleura: No pneumothorax or pleural effusions. No consolidation or suspicious nodules. Right lower lobe pulmonary nodule measuring 0.4 cm less is less prominent. Heart: Heart size is normal. No pericardial effusion. Thoracic Vessels: The aorta and pulmonary arteries demonstrate normal size. Mediastinum and Nataly: No enlarged lymph nodes. Esophagus: No wall thickening. No hiatal hernia. ABDOMEN: Liver: No solid mass. Gallbladder: Absent. Biliary ducts: No biliary dilation. Pancreas: No ductal dilation. Spleen: Size is within normal limits. Adrenal Glands: No adrenal nodules. Kidneys and Ureters: No hydronephrosis. No solid mass. No complex renal cystic lesion which requires follow up. Stomach and Bowel: No mass identified. Clips in the left lower quadrant. Diverticulosis. Normal appendix. No small bowel obstruction. Stomach is within normal limits. Peritoneum: No abnormal intraperitoneal fluid. No free air. Ventral Wall: No significant ventral hernia. Abdominal Nodes: No retroperitoneal or mesenteric adenopathy by size criteria. Vessels: Aorta and inferior vena cava are normal in size. PELVIS: Pelvic Organs: Anteverted uterus. Bladder: No bladder wall thickening, accounting for underdistention. Pelvic Nodes: No enlarged lymph nodes. Miscellaneous: No inguinal hernias are seen. Bones: No aggressive osseous abnormality. Minimal height loss at T10 is unchanged. IMPRESSION: No metastatic disease. No adenopathy. No free fluid. Lungs are clear. Dictated by: Roman Carrera M.D. on 12/23/2023 at 13:12 Approved by: Roman Carrera M.D. on 12/23/2023 at 13:26
== END ==
LOC: CT 10:29
PROVIDERS: PCP Registered Nurse; Referring Provider Internal Medicine Hematology & Oncology; Visit Provider Internal Medicine Hematology & Oncology
DX: C18.6 Malignant neoplasm of descending colon (principal); R91.1 Solitary pulmonary nodule; K57.90 Diverticulosis of intestine, part unspecified, without perforation or abscess without bleeding; Z90.49 Acquired absence of other specified parts of digestive tract
CPT/HCPCS: 71260; 74177; Q9967

== ENCOUNTER 2024-04-02 11:22 | Emergency (ER) | payer OTHER, SELFPAY ==
[2019-05-05 19:06] VITALS: BMI 31.1
[2024-04-02 11:33] VITALS: BP 113/59; PULSE 95; RESP 20; TEMP 36.4; O2SAT 98; BMI 31.7
--- NOTE | 2024-04-02 11:45 | DI.US.S_ITS ---
PROCEDURE: US PERIPH VENOUS LOW EXTREM LT INDICATIONS: r/o dvt TECHNIQUE: Real-time imaging, as well as color and pulse Doppler interrogation, were performed of the lower extremity deep veins from the inguinal ligament to the popliteal fossa, with documentation of the visualized calf veins. COMPARISON: None. FINDINGS: The common femoral, femoral, popliteal, and the visualized calf veins are normally compressible, and free of intraluminal thrombus. Color and pulse Doppler demonstrate normal phasic intraluminal flow. There is normal augmentation response to distal compression maneuver. IMPRESSION: Negative left lower extremity duplex venous ultrasound for DVT. Dictated by: Eric Nolen M.D. on 04/02/2024 at 13:41 Approved by: Eric Nolen M.D. on 04/02/2024 at 13:41
--- NOTE | 2024-04-02 14:33 | ED.EXTPRO ---
HPI - Extremity Problem <Lety Iglesias PA-C - Last Filed: 04/02/24 16:43> General Chief complaint: Extremity Problem,Nontraumatic Stated complaint: poss blood clot, sent by pcp Time Seen by Provider: 04/02/24 14:33 Source: patient Mode of arrival: Wheelchair History of Present Illness HPI Narrative: 84-year-old female presents with left leg pain for 1 week now. Last Friday she endorsed a cramping sensation in her calf and behind her knee. She is reporting no fall, injury, at no time has she described any numbness, tingling, burning, she has no prior history of any knee injuries on the left side. Her history is significant for colon cancer she will make the 5 year lynnette this April but was referred here by her PCP to rule out DVT. She reports she does not think that is what is going on, she has no pain at rest, it is only when she tries to stand or extend the knee that she feels exquisite pain that grabs her. She tried to characterize the pain, it was sudden and sharp and nonradiating, she points to the anterior knee and medial aspect at this point. She has been very active up until now, she went and got a wheelchair that she has been using now to get around at home, she has been using towels to urinate as she can not ambulate in time due to the pain to get to the toilet. She is denying any other symptoms, no fever, chills, no recent illness. She is retired, she states that she only is on ?poop patrol for her horses in the past year, she no longer rides, previous orthopedic injuries include a fractured left wrist and right lower leg in her 20s. She is only taken Tylenol for the pain. No disruption during sleep. All other systems are reviewed and are negative. Related Data Home Medications Medication Instructions Recorded Confirmed cholecalciferol (vitamin D3) 50 4,000 unit PO DAILY 03/31/19 07/11/22 mcg (2,000 unit) tablet (Vitamin D3) omeprazole 20 mg capsule,delayed 20 mg PO DAILY 04/08/19 07/11/22 release levothyroxine 112 mcg tablet 112 mcg PO DAILY 05/10/21 07/11/22 Previous Rx's Medication Instructions Recorded lidocaine-prilocaine 2.5 %-2.5 % 1 applic topical PRN PRN 07/03/21 topical cream Port/Catheter Care #30 grams Allergies Allergy/AdvReac Type Severity Reaction Status Date / Time No Known Drug Allergies Allergy Verified 05/05/19 08:43 Review of Systems <Lety Iglesias PA-C - Last Filed: 04/02/24 16:43> Review of Systems Narrative: All other systems reviewed and are negative. Patient History <Lety Iglesias PA-C - Last Filed: 04/02/24 16:43> Medical History (Updated 04/02/24 @ 16:16 by Lety Iglesias PA-C) Colon cancer GERD (gastroesophageal reflux disease) Hypothyroidism Surgical History Hx of colectomy (05/05/19) History of tonsillectomy (~1964) History of cholecystectomy (~2012) Family History Grandmother Stomach cancer Social History household members: spouse and children Smoking Status: Never smoker alcohol intake: current substance use type: does not use Smoking Status: Never smoker alcohol intake frequency: holidays/special occasions only Exam <Lety Iglesias PA-C - Last Filed: 04/02/24 16:43> Initial Vital Signs Initial Vital Signs: Vital Signs Temperature 97.6 F 04/02/24 11:33 Pulse Rate 95 H 04/02/24 11:33 Respiratory Rate 20 04/02/24 11:33 Blood Pressure 113/59 L 04/02/24 11:33 Pulse Oximetry 98 04/02/24 11:33 Oxygen Delivery Method Room Air 04/02/24 11:33 Vital signs reviewed and are normal. Const General: cooperative, healthy appearing, comfortable, well developed, well groomed and No acute distress [facility] Head: normal to inspection and normocephalic Eyes General: Yes appearance normal, both eyes and all related structures Neck Neck: normal visual inspection and supple Resp Effort & Inspection: normal respiratory effort Auscultation: clear to auscultation bilaterally, no rales, no rhonchi and no wheezes Cardio Rate: regular rate Rhythm: regular rhythm Extrem Right lower extremity: full ROM and knee (Knee joint bony prominence compared to contralateral side.); joint enlargement noted Other: No discoloration or soft tissue swelling. There is no palpable swelling in the popliteal space, she has medial joint line tenderness, the patella tracks smoothly without crepitation, she is negative for any laxity with anterior and posterior drawer. Jony's is negative. Pain is appreciated with valgus stressing on the medial aspect. No tenderness of the calf, no swelling, negative Frey's, negative Homans. No issues identified with the ankle or foot, no ankle edema, normal DP and PT pulses. No issues identified with the ITB band quadricep or hip joints. Pelvic rock is normal, no pain elicited. <DO Rayne Valadez Last Filed: 04/07/24 18:16> Initial Vital Signs Initial Vital Signs: Vital Signs Temperature 97.6 F 04/02/24 11:33 Pulse Rate 95 H 04/02/24 11:33 Respiratory Rate 20 04/02/24 11:33 Blood Pressure 113/59 L 04/02/24 11:33 Pulse Oximetry 98 04/02/24 11:33 Oxygen Delivery Method Room Air 04/02/24 11:33 Course <Lety Iglesias PA-C - Last Filed: 04/02/24 16:43> Orders Ordered: ED Orders 04/02/24 11:45 US periph venous low extrem lt Stat 04/02/24 14:50 XR knee LT 3V Stat Vital Signs Vital signs: Vital Signs - 8 hr 04/02/24 11:33 Temperature 97.6 F Pulse Rate 95 H Respiratory Rate 20 Blood Pressure 113/59 L Pulse Oximetry 98 Oxygen Delivery Method Room Air <DO Rayne Valadez Last Filed: 04/07/24 18:16> Orders Ordered: ED Orders 04/02/24 11:45 US periph venous low extrem lt Stat 04/02/24 14:50 XR knee LT 3V Stat Vital Signs Vital signs: Vital Signs - 8 hr 04/02/24 11:33 Temperature 97.6 F Pulse Rate 95 H Respiratory Rate 20 Blood Pressure 113/59 L Pulse Oximetry 98 Oxygen Delivery Method Room Air MDM - Extremity (Nontraumatic) <Lety Iglesias PA-C - Last Filed: 04/02/24 16:43> Imaging Data US - DVT: My Impression: Deferred to radiologist below. Radiologist's Impression: PROCEDURE: US PERIPH VENOUS LOW EXTREM LT INDICATIONS: r/o dvt TECHNIQUE: Real-time imaging, as well as color and pulse Doppler interrogation, were performed of the lower extremity deep veins from the inguinal ligament to the popliteal fossa, with documentation of the visualized calf veins. COMPARISON: None. FINDINGS: The common femoral, femoral, popliteal, and the visualized calf veins are normally compressible, and free of intraluminal thrombus. Color and pulse Doppler demonstrate normal phasic intraluminal flow. There is normal augmentation response to distal compression maneuver. IMPRESSION: Negative left lower extremity duplex venous ultrasound for DVT. Dictated by: Eric Nolen M.D. on 04/02/2024 at 13:41 Approved by: Eric Nolen M.D. on 04/02/2024 at 13:41 Extremity x-ray #1: My Impression: Deferred to radiologist's interpretation below. Radiologist's Impression: PROCEDURE: XR KNEE LT 3V INDICATIONS: left knee pain, neg US, no trauma TECHNIQUE: 3 views of the knee were acquired. COMPARISON: None. FINDINGS: Bones: Linear lucency without cortical step-off of the medial femoral condyle. Soft tissues: Small joint effusion. No suspicious soft tissue calcifications. IMPRESSION: Linear lucency without cortical step-off along the medial femoral condyle. This probably represents artifact in the absence of a significant joint effusion. Correlate with point tenderness. Dictated by: Pito Marc M.D. on 04/02/2024 at 15:24 Approved by: Pito Marc M.D. on 04/02/2024 at 15:25 [facility] Narrative Medical decision making narrative: This unfortunate 84-year-old female has exquisite left knee pain with standing, ambulation. There is no history of any trauma or injury, no prior injuries in her lifetime. She has no pain at rest. Her ultrasound of the lower extremity was negative for DVT. No Braun's cyst. Plain films reveal, my concern with her medial joint line tenderness and pain with passive full flexion and valgus stressing that she may have some meniscal involvement. There was no laxity appreciated. Discharge Plan Departure Patient Disposition: Home Clinical Impression: Fracture of femoral condyle, left, closed Qualifiers: Encounter type: initial encounter Fracture alignment: nondisplaced Qualified Code(s): S72.415A - Nondisplaced unspecified condyle fracture of lower end of left femur, initial encounter for closed fracture Instructions: DI for Femoral Fracture, DI for Knee Pain Activity Restrictions/Additional Instructions: You have medial knee pain in the absence of trauma, your x-rays were concerning for a small linear lucency which could represent a small crack also known as a fracture in that lower part of your femur bone which makes up the knee. It was exactly how your pain was located on exam. The knee immobilizer should be worn at all times, if you need to remove it for showering that is fine please use a shower chair. Try to find a wheelchair that has a leg extension so that you may elevate with the knee immobilizer. Please call your doctor for follow-up, I have listed an orthopedist that you may also contact as she was the on-call for today, it is part of a larger medical group here in [facility]. You may ice, Tylenol for pain, we did not try crutches today as this probably when work the best for you in your situation at home I think the wheelchair is safest. Try to remain active though but do not push it too hard as we want to avoid new injury or worsening injury. It was truly nice to meet you I wish you the best of luck. Prescriptions: No Action cholecalciferol (vitamin D3) [Vitamin D3] 2,000 unit Tablet 4,000 unit PO DAILY omeprazole 20 mg Capsule,Delayed Release(Dr/Ec) 20 mg PO DAILY levothyroxine 112 mcg Tablet 112 mcg PO DAILY lidocaine-prilocaine 2.5-2.5 % Cream 1 applic topical PRN PRN (Reason: Port/Catheter Care) Qty: 30 1RF Rx Instructions: Apply to skin over the port at least 2 hrs before planned use of the port. Cover the cream with a small piece of plastic wrap and leave in place until the port is accessed Referrals: Allie Carroll ARNP [Primary Care Provider] - Linda Ho MD [Physician] - (Left medial knee pain, linear lucency of medial femoral condyle, correlates to focal pain. No hx of fall or trauma. ) Stand Alone Forms: Patient Portal/API/Survey ED Sign-out <Marleen Myrick DO - Last Filed: 04/07/24 18:16> Cosign ED Attending Cosignature Attestation: I was immediately available in the department for consultation.
--- NOTE | 2024-04-02 14:50 | DI.RAD.S_ITS ---
PROCEDURE: XR KNEE LT 3V INDICATIONS: left knee pain, neg US, no trauma TECHNIQUE: 3 views of the knee were acquired. COMPARISON: None. FINDINGS: Bones: Linear lucency without cortical step-off of the medial femoral condyle. Soft tissues: Small joint effusion. No suspicious soft tissue calcifications. IMPRESSION: Linear lucency without cortical step-off along the medial femoral condyle. This probably represents artifact in the absence of a significant joint effusion. Correlate with point tenderness. Dictated by: Pito Marc M.D. on 04/02/2024 at 15:24 Approved by: Pito Marc M.D. on 04/02/2024 at 15:25
--- NOTE | 2024-04-02 16:34 | PC.NURSE ---
Pt states she got out of the bathtub last night and had pain when getting out/going to bed. Pt states this morning the pain got worse and she needed to come in. Pt denies falls or injury. Tenderness to palpation. Pt reports improvement in pain with immobilization .
[2024-04-02 16:36] VITALS: BP 155/68; PULSE 83; RESP 16; O2SAT 98
== END 2024-04-02 16:37 | disposition home or self-care (01) ==
PROVIDERS: Emergency Provider Physician Assistant Medical; PCP Registered Nurse
DX: S72.432A Displaced fracture of medial condyle of left femur, initial encounter for closed fracture (principal); X58.XXXA Exposure to other specified factors, initial encounter; Z85.038 Personal history of other malignant neoplasm of large intestine
CPT/HCPCS: 73562; 93971; 99283

== ENCOUNTER → 2024-04-14 13:09 | Outpatient (CLI) | payer OTHER, SELFPAY ==
[2019-05-05 19:06] VITALS: BMI 31.1
--- NOTE | 2024-04-14 13:11 | DI.MRI.S_ITS ---
PROCEDURE: MR KNEE LT WO CON INDICATIONS: TEAR OF MEDIAL COLLATERAL LIGAMENT OF LT KNEE TECHNIQUE: Noncontrast sagittal PD fast spin echo and T2 fast spin echo with fat saturation, sagittal 3-D FLASH with fat saturation; coronal T1 spin echo and PD fast spin echo with fat saturation, and axial PD fast spin echo with fat saturation through the knee. COMPARISON: [facility], CR, XR KNEE LT 3V, 04/02/2024, 14:51. FINDINGS: Image quality: Excellent. Anterior cruciate ligament: Intact. Posterior cruciate ligament: Osseous avulsion of the distal posterior cruciate ligament insertion. Medial collateral ligament: Partial osseous avulsion at the proximal femoral attachment of the medial collateral ligament. Lateral collateral ligament: Intact. Medial meniscus: Posterior root of the medial meniscus inserts onto the posterior tibial plateau fracture fragment. Horizontal oblique tearing at the junction of the posterior horn and body of the medial meniscus extending to the tibial articular surface. Lateral meniscus: Horizontal tearing at the body of the lateral meniscus extending to the tibial and femoral articular surfaces and free edge margin. Posterior root of the lateral meniscus insert onto the posterior tibial fracture fragment. Medial and lateral tendons: The semimembranosus tendon insertions appear intact. Visualized portions of the pes anserinus tendons appear normal. The popliteus tendon is intact. Iliotibial band appears normal. Anterior structures: The quadriceps and patellar tendons appear intact. No patellar subluxation. No femoral trochlear dysplasia or ventral trochlear prominence. No edema in the infrapatellar fat pad. Bones: Minimally displaced fracture at the medial aspect of the medial femoral condyle measuring approximately 14 x 2 x 12 mm with mild surrounding osseous edema. Minimally displaced avulsion fracture at the posterior aspect of the central tibial plateau measuring 36 x 34 x 14 mm with surrounding osseous edema. Cortical irregularity and osseous edema at the posterior lateral aspect of the lateral femoral condyle suspicious for a mildly depressed impaction fracture. Medial femorotibial cartilage: Partial-thickness cartilage irregularity in the weight-bearing portion of the medial compartment with cartilage fissuring adjacent to the tibial plateau fracture site. Lateral femorotibial cartilage: High-grade cartilage irregularity at the far posterior portion of the lateral femoral condyle at the impaction fracture site. Partial-thickness cartilage irregularity in the weight-bearing portion. Patellofemoral cartilage: Mild partial-thickness cartilage thinning. Soft tissues: Moderate joint effusion. Small medial popliteal cyst. Soft tissue edema is seen surrounding the distal tibia and fibula. 6 mm ossified loose body is seen anterior to the medial tibial plateau. IMPRESSION: 1. Minimally displaced avulsion fracture of the posterior portion of the central tibial plateau involving the posterior cruciate ligament insertion as well as the insertions of the posterior root attachments of the medial and lateral menisci. 2. Minimally displaced avulsion fracture at the medial aspect of the medial femoral condyle involving a portion of the medial collateral ligament origin with associated partial ligament tearing. 3. Mildly depressed impaction fracture at the posterolateral aspect of the lateral femoral condyle. 4. Horizontal oblique tearing of the junction of posterior horn and body of the medial meniscus extending to the tibial articular surface. 5. Horizontal tearing of the body of the lateral meniscus with components extending to the inner thirds of the femoral and tibial articular surfaces. 6. Moderate joint effusion. 6 mm ossified loose body anterior to the medial compartment. Small medial popliteal cyst. Approved by: Vlad Gonzalez M.D. on 04/16/2024 at 9:15
== END ==
PROVIDERS: PCP Registered Nurse; Referring Provider Physician Assistant; Visit Provider Physician Assistant
DX: S72.422A Displaced fracture of lateral condyle of left femur, initial encounter for closed fracture (principal); S82.145A Nondisplaced bicondylar fracture of left tibia, initial encounter for closed fracture; S72.435A Nondisplaced fracture of medial condyle of left femur, initial encounter for closed fracture; S83.412A Sprain of medial collateral ligament of left knee, initial encounter; S83.282A Other tear of lateral meniscus, current injury, left knee, initial encounter; S83.242A Other tear of medial meniscus, current injury, left knee, initial encounter; M25.462 Effusion, left knee; M71.22 Synovial cyst of popliteal space [Baker], left knee; X58.XXXA Exposure to other specified factors, initial encounter
CPT/HCPCS: 73721

== ENCOUNTER → 2024-05-06 14:31 | Outpatient (CLI) | payer OTHER, SELFPAY ==
[2019-05-05 19:06] VITALS: BMI 31.1
--- NOTE | 2024-05-06 14:32 | DI.MG.S_ITS ---
MM screening mammo BI: 05/06/2024. BI-RADS: 2 CLINICAL: 84-year old female for bilateral screening mammogram. Tyrer-Cuzick lifetime risk of 0.5%. No personal or first-degree family history of breast cancer. PRIOR EXAMS 04/22/2023, 04/18/2022, 04/17/2021, 02/08/2020, 01/09/2018, 12/19/2016, 12/11/2015, 12/08/2014. MAMMOGRAPHY TECHNIQUE: 2D and 3D (tomosynthesis) digital mammographic views obtained, with additional images as needed for full coverage. Current study was also evaluated with a Computer Aided Detection (CAD) system. DENSITY A. The breasts are almost entirely fatty. MAMMOGRAPHY FINDINGS Bilateral No suspicious mass, asymmetry, microcalcification, or other abnormality seen. Implanted manager medical device obscures a portion of the breast/axilla. Typically-benign vascular calcifications noted. IMPRESSION: * No evidence of malignancy with benign findings. RECOMMENDATIONS Bilateral * Annual screening mammography. OVERALL ASSESSMENT CATEGORY BI-RADS-2: Benign. The [employer] recommends annual screening mammography beginning at age 40 for women with average risk of breast cancer. ELECTRONICALLY SIGNED: Vandana Rodriguez M.D. on 05/06/2024 at 04:58:43 PM PT Interpreting Station ID: [id number]
== END ==
PROVIDERS: PCP Registered Nurse; Referring Provider Registered Nurse; Visit Provider Registered Nurse
DX: Z12.31 Encounter for screening mammogram for malignant neoplasm of breast (principal); R92.313 Mammographic fatty tissue density, bilateral breasts; R92.1 Mammographic calcification found on diagnostic imaging of breast
CPT/HCPCS: 77063; 77067

== ENCOUNTER → 2024-07-13 09:14 | Outpatient (CLI) | payer OTHER, SELFPAY ==
[2019-05-05 19:06] VITALS: BMI 31.1
--- NOTE | 2024-07-13 11:02 | DI.CT.S_ITS ---
PROCEDURE: CT ABDOMEN PELVIS W CON INDICATIONS: COLON CANCER TECHNIQUE: After the administration of intravenous contrast, axial sections acquired from the lung bases to the pubic symphysis. Coronal and sagittal reformats were performed. For radiation dose reduction, the following was used: automated exposure control, adjustment of mA and/or kV according to patient size. COMPARISON: [facility], CT, CT CHEST ABD PEL W CON, 12/23/2023, 12:09. FINDINGS: Image quality: Diagnostic. Lower Chest: No significant findings. ABDOMEN: Liver: No solid mass. Gallbladder: Absent. Biliary ducts: No biliary dilation. Pancreas: No ductal dilation. Spleen: Size is within normal limits. Adrenal Glands: No adrenal nodules. Kidneys and Ureters: No hydronephrosis. No solid mass. No complex renal cystic lesion which requires follow up. Right-sided renal sinus cyst. Stomach and Bowel: Normal colonic caliber, without significant wall thickening. Colonic diverticulosis without evidence of diverticulitis. No obstructing colonic mass. Peritoneum: No abnormal intraperitoneal fluid. No free air. Ventral Wall: No significant ventral hernia. Abdominal Nodes: No retroperitoneal or mesenteric adenopathy by size criteria. Vessels: Aorta and inferior vena cava are normal in size. PELVIS: Pelvic Organs: Unremarkable. Bladder: No bladder wall thickening, accounting for underdistention. Pelvic Nodes: No enlarged lymph nodes. Miscellaneous: No inguinal hernias are seen. Bones: No aggressive osseous abnormality. IMPRESSION: No measurable disease. Dictated by: Pito Marc M.D. on 07/13/2024 at 13:27 Approved by: Pito Marc M.D. on 07/13/2024 at 13:34
== END ==
PROVIDERS: PCP Registered Nurse; Referring Provider Registered Nurse; Visit Provider Internal Medicine Hematology & Oncology
DX: C18.6 Malignant neoplasm of descending colon (principal)
CPT/HCPCS: 74177; Q9967